=== PATIENT | female | born 1955 | race Caucasian/White ===

== ENCOUNTER → 2021-01-18 | Outpatient (CLI) | payer MEDICARE ==
--- NOTE | 2021-01-21 09:53 | PE ---
Nuclear medicine PET/CT HISTORY: Lung mass right, R 91.8, initial Patient received 11.2 mCi F-18 FDG intravenously, delayed scanning was performed from the skull base to the mid thighs. Localization and attenuation correction CT scan was performed. No comparisons Chest and neck: There is a mass present in the right hilar location with some probable postobstructiv e atelectatic changes of the right middle lobe, obstruction of the right middle lobe bronchus, there is associated hypermetabolic uptake, SUV 9.8. There is no pleural or pericardial effusion. No axillar y or mediastinal adenopathy is evident. Calcification is present within the coronary arteries, around the mitral annulus. There is no supraclavicular or cervical adenopathy, no additional abnormal uptak e. ABDOMEN: There is a right adrenal mass with associated hypermetabolic uptake SUV 7.1, the mass measur es approximately 3.6 x 1.8 cm. Left adrenal gland is unremarkable. There is no retroperitoneal adenop athy or ascites. Aorta shows normal caliber. Low dense foci within the liver likely represent cysts. Low dense areas present within the pelvis measuring approximately 11 x 14 cm which may represent a ri ght ovarian cystadenoma. There is no associated hydroureter metabolic uptake. No pelvic adenopathy. L eft kidney shows an associated cyst measuring approximately 6.7 cm. Osseous structures show no suspicious uptake, no evident lytic or blastic lesion. 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 Indeterminat e cystic focus within the pelvis.
== END | disposition home or self-care (01) ==
LOC: RADPETMAIN 08:27
PROVIDERS: ATTEND Internal Medicine Critical Care Medicine
DX: R91.8 Other nonspecific abnormal finding of lung field (principal)
CPT/HCPCS: 78815; A9552

== ENCOUNTER 2021-01-22 10:33 | Day surgery (SDC) | payer MEDICARE ==
[2021-01-20 11:42] VITALS: BMI 27.4
[~2021-01-22 10:33] MED LIST: ALBUTEROL NEB (CONC) 2.5 MG/0.5 ML INHALATION ONE; ATROPINE SULFATE 0.4 MG/ML 1 ML VIAL IM ONE; LACTATED RINGERS 1,000 ML IV SCH; LIDOCAINE 1% (10MG/ML) FOR IV START INTRADERMA PRN; LIDOCAINE 2% (PF) 20 MG/ML 5 ML VIAL INHALATION ONE; LIDOCAINE VISCOUS 300 MG/15 ML CUP MUCOUS MEM ONE; SODIUM CHLORIDE 0.9% 1,000 ML IV SCH
[2021-01-22 11:53] LABS: Glucose,Whole Blood 96 mg/dL (75-99)
--- NOTE | 2021-01-22 12:57 | CT ---
EXAMINATION TYPE: CT Chest chema Paula Protocol DATE OF EXAM: 01/22/2021 COMPARISON: None HISTORY: pre bronchial naviagation CT DLP: [address] of the chest was performed with lung and mediastinal window settings submitted. The la ck of contrast limits evaluation of the vascular, mediastinal and parenchymal structures including th e upper abdomen. LUNGS: Right hilar mass is noted measuring 5.7 x 3.9 x 3.8 cm. There is narrowing of the right middle lobe bronchus as well as the bronchus intermedius. No additional masses seen at this time. No eviden ce for pleural effusion or infiltrate. MEDIASTINUM/MAXIM: Thoracic aorta is of normal caliber with limited evaluation given lack of contrast . The heart is not enlarged. No evidence for mediastinal mass. No lymph nodes greater than 1cm. UPPER ABDOMEN: Hypoattenuating hepatic lesions may reflect cysts although lesions of other etiology n ot excluded. Right adrenal nodule is partially imaged. OTHER: No significant other abnormality. IMPRESSION: 1. Right hilar mass as discussed.
[2021-01-22] MEDS ORDERED: PROPOFOL 10 MG/ML 20 ML VIAL IV ONE (13:24)
[2021-01-22] MEDS ORDERED: GLYCOPYRROLATE 0.2 MG/ML 2 ML VIAL ONE (13:24)
[2021-01-22] MEDS ORDERED: SUCCINYLCHOLINE CHLORIDE 100 MG/5 ML SYR IV ONE (13:24)
[2021-01-22] MEDS ORDERED: ROCURONIUM 10 MG/ML (5 ML VIAL) IV ONE (13:24)
[2021-01-22] MEDS ORDERED: NEOSTIGMINE 1 MG/ML 10 ML VIAL ONE (13:24)
[2021-01-22] MEDS ORDERED: SODIUM CHLORIDE 0.9% 500 ML 500 ML IV ONE (14:19)
[2021-01-22 14:39] VITALS: TEMP 96.8
--- NOTE | 2021-01-22 14:47 | XR ---
EXAMINATION TYPE: XR chest 1V portable DATE OF EXAM: 01/22/2021 COMPARISON: CT same date HISTORY: Post right lung biopsy TECHNIQUE: Single frontal view of the chest is obtained. FINDINGS: There is no definite pneumothorax. Right hilar mass is redemonstrated. Linear densities of the left lung base are likely atelectasis. IMPRESSION: Right hilar mass.
[2021-01-22] MEDS ORDERED: ACETAMINOPHEN TAB 325 MG TAB PO STA (15:33)
[2021-01-22] MEDS ORDERED: IPRATROPIUM-ALBUTEROL 3 ML NEB INHALATION STA (15:33)
[2021-01-22] MEDS ORDERED: methylPREDNISolone ACETATE 80 MG/ML 1 ML VIAL IM STA (15:33)
[2021-01-22] MEDS ORDERED: ACETAMINOPHEN TAB 325 MG TAB ONE (15:35)
[2021-01-22] MEDS ORDERED: ACETAMINOPHEN TAB 325 MG TAB PO ONE (15:37)
[2021-01-22] MEDS ORDERED: methylPREDNISolone ACETATE 80 MG/ML 1 ML VIAL IM ONE (15:38)
[2021-01-22 15:43] VITALS: BP 115/71
[2021-01-22 16:03] VITALS: RESP 20
[2021-01-22 16:47] VITALS: PULSE 75
[2021-01-22 18:38] LABS: Appearance,BF Cloudy; Color,BF Red; Nucleated Cells, Body Fluid 50 /uL
[2021-01-22 18:39] LABS: RBC, Body Fluid 27200 /uL
[2021-01-22 18:51] LABS: Mononuclear WBC,Body Fluid 4 %; Polynuclear WBC,Body Fluid 96 %; Total Cells Counted,Body Fluid 100
--- NOTE | 2021-01-22 20:39 | PCN ---
PROCEDURE NOTE PROCEDURE: Electromagnetic navigational bronchoscopy. PREOP DIAGNOSIS: Right lung mass. POSTOP DIAGNOSIS: Right lung mass. OPERATORS: Dr. Hutson and Dr. eLvi. [employer] CONSULTANT provided general anesthesia. PROCEDURE DETAILS: The procedure was done and endoscopy #1. There was informed consent and universal timeout. After the patient was on the effects of general anesthesia on the ventilator, the bronchoscope was inserted through the bronchoscope adapter connected to the endotracheal tube. Next, we evaluated the left lung. The left lung was normal and the left upper lobe proper, lingula and left lower lobe. On the right side, the right upper lobe itself appeared completely normal as was the right lower lobe. The abnormalities appeared to be primarily located in the right middle lobe. It was difficult to get the scope into the right middle lobe beyond a couple mm. Next, using the [employer] electromagnetic navigational device, we were able to do multiple endobronchial and transbronchial biopsies in the area of the right middle lobe. Next we did transbronchial needle aspirations in the right middle lobe followed by brushes in the right middle lobe and finally washes in the right middle lobe. The patient tolerated the procedure well. The patient will need a postoperative chest x-ray. The patient will be recovered. No additional recommendations are made. There was no immediate complications. All the specimens were sent to the laboratory for analysis. MMODL / IJN: [id number] /
== END 2021-01-22 17:09 | disposition home or self-care (01) ==
LOC: ORWHC2ENDO 10:33
PROVIDERS: ATTEND Internal Medicine Critical Care Medicine
DX: R91.8 Other nonspecific abnormal finding of lung field (principal); I25.10 Atherosclerotic heart disease of native coronary artery without angina pectoris; I10 Essential (primary) hypertension; E78.5 Hyperlipidemia, unspecified; J44.9 Chronic obstructive pulmonary disease, unspecified; Z79.82 Long term (current) use of aspirin; Z95.1 Presence of aortocoronary bypass graft
CPT/HCPCS: 31627; 31629; 31625; 31623; 31624; 94640; 89050; 71045; 71250; J1040; J2710; J0330; J2704; 88305; 88341; 88342

== ENCOUNTER → 2021-01-31 | Outpatient (CLI) | payer MEDICARE ==
--- NOTE | 2021-01-31 13:39 | MR ---
EXAMINATION TYPE: MR brain wo/w con DATE OF EXAM: 01/31/2021 1:25 PM COMPARISON: NONE HISTORY: Lung Cancer CONTRAST: Patient received 7 mL intravenous Gadavist gadolinium contrast. Multiplanar and multispin-echo imaging of the brain was performed . Pre and post contrast enhanced i mages are obtained. The ventricles, basal cisterns and sulci overlying the cerebral convexities are mildly enlarged. There is evidence of mild periventricular white matter ischemic demyelination. Remote deep white matter insults are also noted. No acute edema is seen on diffusion weighted imaging. There is no evidence for midline shift or mass effect. Acute intracranial hemorrhage or extra-axial collection is not evident. No enhancing lesions are seen. The paranasal sinuses and mastoid air cells are well-aerated. IMPRESSION: Age-related atrophic and chronic small vessel ischemic change. No acute intracranial process at this time. No enhancing lesions are seen.
== END | disposition home or self-care (01) ==
LOC: RADMRIMAIN 11:37
PROVIDERS: ATTEND Internal Medicine Hematology & Oncology
DX: C34.90 Malignant neoplasm of unspecified part of unspecified bronchus or lung (principal); I99.8 Other disorder of circulatory system; I67.82 Cerebral ischemia
CPT/HCPCS: 70553; A9585

== ENCOUNTER → 2021-04-22 | Outpatient (CLI) | payer MEDICARE ==
--- NOTE | 2021-04-22 12:51 | XR ---
EXAMINATION TYPE: XR abdomen complete w decub DATE OF EXAM: 04/22/2021 COMPARISON: NONE HISTORY: 65-year-old female C34.2 R94.5 I25.10 E78.5 Abdominal Pain TECHNIQUE: Supine, upright, and left side down lateral decubitus views of the abdomen are obtained. FINDINGS: No evidence for free intraperitoneal air on the decubitus or upright images. Cholecystectomy clips. Some clustered air-fluid levels within small bowel loops and ascending colon in the right side of the abdomen. Small bowel loops measure up to 2.3 cm which are normal. Mild stool within the colon. Air e xtends distally to the rectum. No suspicious calcification is clearly seen. IMPRESSION: A number of air-fluid levels in the right side of the abdomen involve both nondilated small bowel and colon. Consider a regional ileus or enteritis. Overall nonobstructive bowel gas pattern. No free air .
== END | disposition home or self-care (01) ==
LOC: RADXRMAIN 12:03
PROVIDERS: ATTEND Internal Medicine Hematology & Oncology
DX: C34.2 Malignant neoplasm of middle lobe, bronchus or lung (principal); K52.9 Noninfective gastroenteritis and colitis, unspecified
CPT/HCPCS: 74021

== ENCOUNTER → 2021-05-02 | Outpatient (CLI) | payer MEDICARE ==
--- NOTE | 2021-05-06 14:26 | PE ---
Nuclear medicine PET/CT HISTORY: Lung cancer, subsequent Patient received 9.3 mCi F-18 FDG intravenously and delayed scanning was performed from skull base to the mid thighs. A localization and attenuation correction CT scan was performed Correlation to prior nuclear medicine PET/CT 01/18/2021 Chest and neck: There is no cervical or supraclavicular adenopathy. There is some uptake noted along the right lobe of the thyroid which may be artifactual SUV 3.2. At the level of the right hilum ther e is improvement in the hypermetabolic uptake seen on prior exam, SUV 2.8 previously SUV 9.8. There i s no pleural or pericardial effusion. Atelectatic change is again noted in the right lung. ABDOMEN: Uptake seen associated with the right adrenal gland has improved. SUV is 3.8, previous SUV 7 .1. Patient is post cholecystectomy. No evident liver mass or retroperitoneal adenopathy. Large cysti c focus is present within the pelvis similar to prior exam. No associated uptake. Osseous structures show no suspicious uptake IMPRESSION: There is improvement in the previously identified hypermetabolic uptake as described in t he right hilum, right adrenal gland
== END | disposition home or self-care (01) ==
LOC: RADPETMAIN 10:24
PROVIDERS: ATTEND Internal Medicine Hematology & Oncology
DX: C34.2 Malignant neoplasm of middle lobe, bronchus or lung (principal)
CPT/HCPCS: 78815; A9552

== ENCOUNTER 2021-06-05 14:26 | Inpatient (IN) | payer MEDICARE ==
[2021-06-05] MEDS ORDERED: ONDANSETRON 4 MG/2 ML VIAL IVP STA (15:05)
[2021-06-05] MEDS ORDERED: SODIUM CHLORIDE 0.9% 1,000 ML IV STA (15:05)
[2021-06-05] MEDS ORDERED: FAMOTIDINE 20 MG/2 ML VIAL IV STA (15:07)
--- NOTE | 2021-06-05 15:11 | ED ---
General Adult HPI - General Chief complaint: Weakness Stated complaint: Weakness Time Seen by Provider: 06/05/21 14:42 Source: patient, RN notes reviewed Mode of arrival: EMS Limitations: no limitations - History of Present Illness Initial comments: Patient is a pleasant 66-year-old female presenting to the emergency Department with complaints of general weakness. Onset of symptoms was several days ago. Patient has been having diarrhea the past 5 or 6 days, proximal he once per day. Patient states it looked dark but she thinks it was from taking Pepto-Bismol. A ellis has some nausea and did vomit once. No abdominal pain. Patient feels somewhat weak all over. Patient does have history of lung cancer and has had 4 rounds of chemotherapy. Patient is currently on immunotherapy with planned radiation to start soon. EMS reported low blood pressure that improved with 7 50 mL of fluid. Blood pressure was 70/40 by EMS. - Related Data Home Medications Medication Instructions Recorded Confirmed ALPRAZolam [Xanax] 0.5 mg PO DIRECTED PRN 01/20/21 01/22/21 Aspirin [Adult Low Dose Aspirin EC] 81 mg PO DAILY 01/20/21 01/22/21 Atorvastatin [Lipitor] 40 mg PO HS 01/20/21 01/22/21 Fluticasone/Vilanterol [Breo 1 inhalation INHALATION 01/20/21 01/22/21 Ellipta 200-25 Mcg INH] DIRECTED PRN Levothyroxine Sodium [Synthroid] 25 mcg PO DAILY 01/20/21 01/22/21 Loratadine [Claritin] 10 mg PO HS 01/20/21 01/22/21 Metoprolol Tartrate [Lopressor] 50 mg PO HS 01/20/21 01/22/21 buPROPion HCL [Wellbutrin XL] 150 mg PO HS 01/20/21 01/22/21 lisinopriL [Zestril] 5 mg PO HS 01/20/21 01/22/21 predniSONE [Deltasone] 20 mg PO BID 01/20/21 01/22/21 Allergies Allergy/AdvReac Type Severity Reaction Status Date / Time No Known Allergies Allergy Verified 06/05/21 14:53 Review of Systems ROS Statement: Those systems with pertinent positive or pertinent negative responses have been documented in the HPI. ROS Other: All systems not noted in ROS Statement are negative. Constitutional: Denies: fever Eyes: Denies: eye pain ENT: Denies: ear pain Respiratory: Denies: cough, dyspnea Cardiovascular: Denies: chest pain Endocrine: Reports: fatigue Gastrointestinal: Reports: nausea, vomiting, diarrhea. Denies: abdominal pain Genitourinary: Denies: dysuria Musculoskeletal: Denies: back pain Skin: Denies: rash Neurological: Denies: confusion Past Medical History Past Medical History: Cancer Additional Past Medical History / Comment(s): Heart Disease History of Any Multi-Drug Resistant Organisms: None Reported Past Surgical History: Cholecystectomy Past Psychological History: No Psychological Hx Reported Smoking Status: Former smoker Past Alcohol Use History: None Reported Past Drug Use History: None Reported General Exam Limitations: no limitations General appearance: alert, in no apparent distress Head exam: Present: normocephalic Eye exam: Present: normal appearance Neck exam: Present: normal inspection Respiratory exam: Present: normal lung sounds bilaterally Cardiovascular Exam: Present: tachycardia GI/Abdominal exam: Present: soft. Absent: tenderness Neurological exam: Present: alert, CN II-XII intact. Absent: motor sensory deficit Expanded Neurological exam: Present: protecting the airway Speech: Present: fluid speech Motor strength exam: RUE: 5, LUE: 5, RLE: 5, LLE: 5 Eye Response: (4) open spontaneously Motor Response: (6) obeys commands Verbal Response: (5) oriented Psychiatric exam: Present: normal affect, normal mood Skin exam: Present: normal color Course Vital Signs 06/05/21 06/05/21 06/05/21 14:29 14:38 15:08 Temperature 98.6 F Pulse Rate 112 H Pulse Rate [ 112 H Timekeeping Supervisor ] Respiratory 18 Rate Blood Pressure 109/48 O2 Sat by Pulse 92 L 87 L Oximetry 06/05/21 06/05/21 15:23 16:24 Temperature Pulse Rate 108 H 105 H Pulse Rate [ Timekeeping Supervisor ] Respiratory 16 16 Rate Blood Pressure 128/77 137/64 O2 Sat by Pulse 96 100 Oximetry EKG Findings - EKG Comments: EKG Findings:: Sinus tachycardia 113. HI 1:30. QRS 72. QT 362. QTC 496. Normal axis. Normal QRS. No acute ST change. Medical Decision Making - Medical Decision Making Patient reevaluated and updated. Patient only feels somewhat better. Blood pressure has been stable. Patient updated on results and plan. Case was discussed with Dr. Dhaliwal, who will admit covering hospital call. Dr. Gallagher wi ll be placed on consult. - Lab Data Result diagrams: 06/05/21 15:50 06/05/21 15:50 Lab Results 06/05/21 06/05/21 06/05/21 Range/Units 15:50 15:50 15:50 WBC 5.2 (3.8-10.6) k/uL RBC 3.59 L (3.80-5.40) m/uL Hgb 12.1 (11.4-16.0) gm/dL Hct 35.4 (34.0-46.0) % MCV 98.5 (80.0-100.0) fL MCH 33.7 (25.0-35.0) pg MCHC 34.2 (31.0-37.0) g/dL RDW 14.1 (11.5-15.5) % Plt Count 168 (150-450) k/uL MPV 9.1 Neutrophils % 82 % Lymphocytes % 8 % Monocytes % 7 % Eosinophils % 0 % Basophils % 0 % Neutrophils # 4.2 (1.3-7.7) k/uL Lymphocytes # 0.4 L (1.0-4.8) k/uL Monocytes # 0.4 (0-1.0) k/uL Eosinophils # 0.0 (0-0.7) k/uL Basophils # 0.0 (0-0.2) k/uL PT 10.8 (9.0-12.0) sec INR 1.0 (<1.2) APTT 26.1 (22.0-30.0) sec Sodium 137 (137-145) mmol/L Potassium 4.4 (3.5-5.1) mmol/L Chloride 105 (98-107) mmol/L Carbon Dioxide 25 (22-30) mmol/L Anion Gap 7 mmol/L BUN 28 H (7-17) mg/dL Creatinine 1.23 H (0.52-1.04) mg/dL Est GFR (CKD-EPI)AfAm 52 (>60 ml/min/1.73 sqM) Est GFR (CKD-EPI)NonAf 45 (>60 ml/min/1.73 sqM) Glucose 102 H (74-99) mg/dL Plasma Lactic Acid Richy (0.7-2.0) mmol/L Calcium 8.6 (8.4-10.2) mg/dL Phosphorus 3.5 (2.5-4.5) mg/dL Magnesium 1.7 (1.6-2.3) mg/dL Total Bilirubin 0.4 (0.2-1.3) mg/dL AST 47 H (14-36) U/L ALT 25 (4-34) U/L Alkaline Phosphatase 74 (38-126) U/L Total Protein 6.5 (6.3-8.2) g/dL Albumin 3.6 (3.5-5.0) g/dL 06/05/21 Range/Units 15:50 WBC (3.8-10.6) k/uL RBC (3.80-5.40) m/uL Hgb (11.4-16.0) gm/dL Hct (34.0-46.0) % MCV (80.0-100.0) fL MCH (25.0-35.0) pg MCHC (31.0-37.0) g/dL RDW (11.5-15.5) % Plt Count (150-450) k/uL MPV Neutrophils % % Lymphocytes % % Monocytes % % Eosinophils % % Basophils % % Neutrophils # (1.3-7.7) k/uL Lymphocytes # (1.0-4.8) k/uL Monocytes # (0-1.0) k/uL Eosinophils # (0-0.7) k/uL Basophils # (0-0.2) k/uL PT (9.0-12.0) sec INR (<1.2) APTT (22.0-30.0) sec Sodium (137-145) mmol/L Potassium (3.5-5.1) mmol/L Chloride (98-107) mmol/L Carbon Dioxide (22-30) mmol/L Anion Gap mmol/L BUN (7-17) mg/dL Creatinine (0.52-1.04) mg/dL Est GFR (CKD-EPI)AfAm (>60 ml/min/1.73 sqM) Est GFR (CKD-EPI)NonAf (>60 ml/min/1.73 sqM) Glucose (74-99) mg/dL Plasma Lactic Acid Richy 1.3 (0.7-2.0) mmol/L Calcium (8.4-10.2) mg/dL Phosphorus (2.5-4.5) mg/dL Magnesium (1.6-2.3) mg/dL Total Bilirubin (0.2-1.3) mg/dL AST (14-36) U/L ALT (4-34) U/L Alkaline Phosphatase (38-126) U/L Total Protein (6.3-8.2) g/dL Albumin (3.5-5.0) g/dL - Radiology Data Radiology results: image reviewed (Persistent right hilar mass) Disposition Clinical Impression: Dehydration Disposition: ADMITTED IP TO THIS HOSP Is patient prescribed a controlled substance at d/c from ED?: No Referrals: Viky Lowery MD [Primary Care Provider] - 1-2 days Decision Time: 16:39
--- NOTE | 2021-06-05 15:46 | XR ---
EXAMINATION TYPE: XR chest 2V DATE OF EXAM: 06/05/2021 COMPARISON: Chest x-ray January 22, 2021 HISTORY: Increased weakness. PET/CT May 02, 2021 TECHNIQUE: Frontal and lateral views of the chest are obtained. FINDINGS: There is right hilar spiculated nodule or mass redemonstrated. Left lung remains clear. Th e cardiac silhouette size is stable and within normal limits. The osseous structures are intact. IMPRESSION: Known right hilar mass or neoplasm. No acute pulmonary process is evident.
[2021-06-05 16:09] LABS: Basophils % (A) 0 %; Eosinophils % (A) 0 %; HCT 35.4 % (34.0-46.0); HGB 12.1 gm/dL (11.4-16.0); Lymphocytes # (A) 0.4 k/uL (1.0-4.8); Lymphocytes % (A) 8 %; MCH 33.7 pg (25.0-35.0); MCHC 34.2 g/dL (31.0-37.0); MCV 98.5 fL (80.0-100.0); Mean Platelet Volume 9.1; Monocytes # (A) 0.4 k/uL (0-1.0); Monocytes % (A) 7 %; Neutrophils # (A) 4.2 k/uL (1.3-7.7); Neutrophils % (A) 82 %; Platelet Count 168 k/uL (150-450); RBC 3.59 m/uL (3.80-5.40); RDW 14.1 % (11.5-15.5); WBC 5.2 k/uL (3.8-10.6)
[2021-06-05] MEDS ORDERED: MORPHINE SULFATE 2 MG/ML SYRINGE IVP STA (16:14)
[2021-06-05] MEDS ORDERED: ACETAMINOPHEN TAB 325 MG TAB PO STA (16:19)
[2021-06-05 16:21] LABS: Albumin 3.6 g/dL (3.5-5.0); Calcium 8.6 mg/dL (8.4-10.2); Magnesium 1.7 mg/dL (1.6-2.3); Phosphorus 3.5 mg/dL (2.5-4.5); Potassium 4.4 mmol/L (3.5-5.1); Total Bilirubin 0.4 mg/dL (0.2-1.3); Total Protein 6.5 g/dL (6.3-8.2)
[2021-06-05 16:25] LABS: Partial Thromboplastin Time 26.1 sec (22.0-30.0); Prothrombin Time 10.8 sec (9.0-12.0)
[2021-06-05] MEDS ORDERED: NALOXONE 0.4 MG/ML 1 ML VIAL IV PRN (16:40)
[2021-06-05] MEDS: SODIUM CHLORIDE 0.9% 1,000 ML IV SCH (20:28)
--- NOTE | 2021-06-05 22:54 | P.HPIM ---
History of Present Illness H&P Date: 06/05/21 Chief Complaint: Generalized weakness. Patient is a 66-year-old female with a known history of lung cancer with metastases to adrenal gland currently completed 4 cycles of chemotherapy and is planning for radiation to be started on 06/06/2021, hypertension, hyperlipidemia, hypothyroidism, GERD and history of coronary artery disease status post stent placement 3, anxiety/depression and panic disorder and previous history of smoking present complaints of generalized weakness and fatigue. Patient was also having diarrhea at home for the past 5-6 days.. Patient has been having symptoms for the past several days. Also is complaining of nausea and did have one episode of vomiting. No complaints of abdominal pain. Patient has been afebrile. On admission blood pressure was 109/48 and pulse 112 and pulse ox 92% on room air. Laboratory data showed WBC 5.2 hemoglobin 12.1 and platelets 168 Lymphocytes 0.4 D-dimer 1.02 BUN 28 and creatinine 1.23 COVID-19 PCR detected. UA negative for infection MBH 783 CRP 5.0 and TSH 5.4 and free T4 level is 0.88 slight chest x-ray showed known right hilar mass or neoplasm. No acute pulmonary process. Review of Systems Constitutional: Patient denies any fever or chills . Patient had generalized weakness and fatigue. Fatigue.. Abdomen: Complains of nausea vomiting. no abdominal pain. does have diarrhea.. Cardiovascular: Patient denies any chest pain or short of breath no p alpitations. Respiratory: Cough without sputum production. Minimal shortness of breath Neurologic: Patient denied any numbness or tingling headache. Musculoskeletal: Patient denies any complaints of joint swelling or deformity. Skin: Negative Psychiatric: Negative Endocrine: No heat or cold intolerance. No recent weight gain. Genitourinary: No dysuria or hematuria. All other 14 point ROS negative except the above Past Medical History Past Medical History: Cancer, GERD/Reflux, Hyperlipidemia, Hypertension, Thyroid Disorder Additional Past Medical History / Comment(s): Heart Disease,. 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 tx 4 chemo and immunotherapy rounds. supposed to start radiation 06/06/2021. History of Any Multi-Drug Resistant Organisms: None Reported Past Surgical History: Cholecystectomy, Heart Catheterization With Stent Additional Past Surgical History / Comment(s): 3 cardiac stents. Past Anesthesia/Blood Transfusion Reactions: No Reported Reaction Date of Last Stent Placement:: 2004 Past Psychological History: Anxiety, Depression, Panic Disorder Smoking Status: Former smoker Past Alcohol Use History: None Reported Past Drug Use History: None Reported Additional Drug Use History / Comment(s): quit smoking in january 2021 - Past Family History Mother Family Medical History: No Reported History Father Additional Family Medical History / Comment(s): esophageal cancer Medications and Allergies Home Medications Medication Instructions Recorded Confirmed Type Aspirin [Adult Low Dose Aspirin EC] 81 mg PO DAILY 01/20/21 06/05/21 History Atorvastatin [Lipitor] 40 mg PO HS 01/20/21 06/05/21 History Levothyroxine Sodium [Synthroid] 25 mcg PO DAILY 01/20/21 06/05/21 History lisinopriL [Zestril] 5 mg PO HS 01/20/21 06/05/21 History Folic Acid 1 mg PO DAILY 06/05/21 06/05/21 History Lansoprazole 30 mg PO DAILY 06/05/21 06/05/21 History Magnesium Oxide [Magox 400] 400 mg PO DAILY 06/05/21 06/05/21 History Metoprolol Succinate [Toprol XL] 50 mg PO DAILY 06/05/21 06/05/21 History buPROPion XL [Wellbutrin XL] 300 mg PO DAILY 06/05/21 06/05/21 History diphenhydrAMINE [Benadryl] 25 mg PO HS PRN 06/05/21 06/05/21 History ondansetron HCL [Zofran] 8 mg PO TID PRN 06/05/21 06/05/21 History Allergies Allergy/AdvReac Type Severity Reaction Status Date / Time No Known Allergies Allergy Verified 06/05/21 17:07 Physical Exam Vitals: Vital Signs Temp Pulse Pulse Pulse Resp BP BP 06/05/21 19:31 98.0 F 94 14 114/72 06/05/21 16:24 105 H 16 137/64 06/05/21 15:23 108 H 16 128/77 06/05/21 15:08 06/05/21 14:38 112 H 06/05/21 14:29 98.6 F 112 H 18 109/48 Pulse Ox 06/05/21 19:31 97 06/05/21 16:24 100 06/05/21 15:23 96 06/05/21 15:08 87 L 12/02/21 14:38 06/05/21 14:29 92 L Intake and Output 06/05/21 06/05/21 06/05/21 06:59 14:59 22:59 Other: Weight 75.296 kg 75.296 kg PHYSICAL EXAMINATION: Patient is lying in the bed comfortably, no acute distress, awake alert and wai ented. Generalized weakness and fatigue.. HEENT: Normocephalic. Neck is supple. Pupils reactive. Nostrils clear. Oral cavity is moist. Neck reveals no JVD, carotid bruits, or thyromegaly. CHEST EXAMINATION: Trachea is central. Symmetrical expansion. Lung farrar clear to auscultation and percussion. CARDIAC: Normal S1, S2 with no gallops. No murmurs ABDOMEN: Soft. Bowel sounds normal. No organomegaly. No abdominal bruits. Extremities: reveal no edema. No clubbing or cyanosis Neurologically awake, alert, oriented x3 with well-coordinated movements. No focal deficits noted Skin: No rash or skin lesions. Psychiatric: Coperative. Nonsuicidal Musculoskeletal: No joint swelling or deformity. Normal range of motion. Results CBC & Chem 7: 06/06/21 06:18 06/06/21 06:18 Labs: Abnormal Lab Results - Last 24 Hours (Table) 06/05/21 06/05/21 06/05/21 Range/Units 15:50 15:50 15:53 RBC 3.59 L (3.80-5.40) m/uL Lymphocytes # 0.4 L (1.0-4.8) k/uL BUN 28 H (7-17) mg/dL Creatinine 1.23 H (0.52-1.04) mg/dL Glucose 102 H (74-99) mg/dL AST 47 H (14-36) U/L TSH 5.410 H (0.465-4.680) mIU/L Coronavirus (PCR) Detected A (Not Detectd) Thrombosis Risk Factor Assmnt - DVT/VTE Prophylaxis DVT/VTE Prophylaxis: Pharmacologic Prophylaxis ordered - Choose All That Apply Any of the Below Risk Factors Present?: Yes Each Factor Represents 1 point: Obesity (BMI >25) Other Risk Factors: Yes Each Risk Factor Represents 2 Points: Age 61-74 years, Malignancy Other congenital or acquired thrombophilia - If yes, enter type in comment: No Thrombosis Risk Factor Assessment Total Risk Factor Score: 5 Thrombosis Risk Factor Assessment Level: High Risk Assessment and Plan Assessment: Generalized weakness weakness and fatigue and diarrhea Acute COVID-19 infection Acute kidney injury likely prerenal Elevated intermittent markers Lung cancer currently completed 4 cycles of chemotherapy and is scheduled for radiation therapy on 06/06/2021 Previous history of smoking DVT prophylaxis with Lovenox subcu Plan: Patient will be continued on IV hydration and replace address. Monitor renal function. Chest x-ray showed no acute process but no right hilar mass was noted. Patient is currently not hypoxic. Continue with multivitamins and Lovenox subcu. Time with Patient: Greater than 30
[2021-06-06 01:32] LABS: T4, Free (Free Thyroxine) 0.88 ng/dL (0.78-2.19)
[2021-06-06 05:18] LABS: Appearance,Urine Clear (Clear); Bilirubin,Urine Negative (Negative); Blood,Urine Negative (Negative); Color,Urine Yellow; Glucose,Urine (UA) Negative (Negative); Ketones,Urine Negative (Negative); Leukocyte Esterase,Urine Negative (Negative); Nitrite,Urine Negative (Negative); PH, Urine 5.5 (5.0-8.0); Protein,Urine Trace (Negative); Specific Gravity,Urine 1.019 (1.001-1.035); Urobilinogen,Urine <2.0 mg/dL (<2.0)
[2021-06-06] MEDS: LEVOTHYROXINE 25 MCG TAB PO SCH (05:47)
[2021-06-06] MEDS: SODIUM CHLORIDE 0.9% 1,000 ML IV SCH ×2 (05:50→12:59)
[2021-06-06] MEDS: ASCORBIC ACID 500 MG TAB PO SCH (09:26)
[2021-06-06] MEDS: CHOLECALCIFEROL 25 MCG (1000 IU) TABLET PO SCH (09:26)
[2021-06-06] MEDS: METOPROLOL SUCCINATE (ER) 50 MG TAB.ER.24H PO SCH (09:26)
[2021-06-06] MEDS: ZINC SULFATE 220 MG CAP PO SCH (09:26)
[2021-06-06] MEDS: PANTOPRAZOLE 40 MG/10 ML VIAL IV SCH (09:26)
[2021-06-06] MEDS: buPROPion XL 300 MG TAB.ER.24H PO SCH (09:26)
[2021-06-06] MEDS: ENOXAPARIN 40 MG/0.4 ML SYRINGE SQ SCH (09:26)
[2021-06-06] MEDS: ASPIRIN 81 MG PO SCH (09:26)
[2021-06-06 09:29] LABS: Basophils # (A) 0.01 X 10*3/uL (0.00-0.10); Basophils % (A) 0.2 %; Eosinophils # (A) 0.01 X 10*3/uL (0.04-0.35); Eosinophils % (A) 0.2 %; HCT 33.3 % (37.2-46.3); HGB 10.5 g/dL (12.0-15.0); Lymphocytes # (A) 0.68 X 10*3/uL (0.90-5.00); Lymphocytes % (A) 15.7 %; MCH 33.1 pg (27.0-32.0); MCHC 31.5 g/dL (32.0-37.0); Mean Platelet Volume 11.3 fL (9.5-12.2); Monocytes # (A) 0.35 X 10*3/uL (0.20-1.00); Monocytes % (A) 8.1 %; Neutrophils # (A) 3.25 X 10*3/uL (1.80-7.70); Neutrophils % (A) 75.1 %; Platelet Count 176 X 10*3/uL (140-440); RBC 3.17 X 10*6/uL (4.10-5.20); RDW 14.3 % (11.5-14.5); WBC 4.33 X 10*3/uL (4.50-10.00)
[2021-06-06] MEDS: ACETAMINOPHEN TAB 325 MG TAB PO PRN ×2 (09:32→20:27)
[2021-06-06 09:55] VITALS: BMI 27.6
[2021-06-06 10:01] LABS: Anion Gap 9.4 mmol/L (10.00-18.00); Calcium 8.3 mg/dL (8.7-10.3); Carbon Dioxide 22.6 mmol/L (20.0-27.5); Non-African American GFR(CKD) 57.8 (60.0-200.0); Potassium 4.5 mmol/L (3.5-5.5)
[2021-06-06] MEDS: ONDANSETRON 4 MG/2 ML VIAL IVP PRN ×2 (13:58→20:22)
--- NOTE | 2021-06-06 17:04 | CT ---
EXAMINATION TYPE: CT abdomen pelvis w con DATE OF EXAM: 06/06/2021 COMPARISON: Outside CT dated 05/10/2021 HISTORY: assess colitis CT DLP: 1100 mGycm CONTRAST: CT scan of the abdomen and pelvis is performed without Oral Contrast and with IV Contrast, patient in jected with 80 mL of Isovue 300. FINDINGS: LUNG BASES-: No visible nodule. No infiltrate. LIVER/GB: The gallbladder surgically absent. Several cystic hepatic lesions are stable. No space occu pying hepatic lesion. Biliary tree is of normal caliber. PANCREAS: No inflammation. No distinct mass. SPLEEN: No splenic enlargement. No lesion seen. ADRENALS: No nodule. No thickening. KIDNEYS/BLADDER: No hydronephrosis. No nephrolithiasis. Renal cystic changes noted. Urinary bladder grossly unremarkable. BOWEL: Normal appendix. Normal bowel caliber. No inflammation. Scattered sigmoid diverticula. No di verticulitis. GENITAL ORGANS: No gross abnormality. LYMPH NODES: No greater than 1cm abdominal or pelvic lymph nodes are appreciated. AORTA: No significant abnormality. OSSEOUS STRUCTURES: No significant abnormality is seen. OTHER: There is a large cystic mass arising from the pelvis with internal septations which measures a pproximately 25 x 11.9 x 19 cm. IMPRESSION: 1. Stable large cystic mass arising from the pelvis with internal septations. Neoplasm is not exclude d. Correlate clinically. 2. Mild thickening right adrenal gland. 3. Stable cystic lesions throughout the liver. 4. No evidence for colitis.
--- NOTE | 2021-06-06 17:36 | P.CONS ---
History of Present Illness - Reason for Consult Consult date: 06/06/21 metastatic lung cancer currently on immunotherapy. Covid - History of Present Illness this is a 66-year-old white female, a patient of Dr. Gallagher'bunny in the office was been admitted to the hospital for progressive weakness and decreased appetite. The patient developed diarrhea about 5-6 days ago, associated with decreased appetite and then subsequently at least 1 episode of nausea and vomiting. She denied any overt fever or chills. On evaluation she was found to be Covid positive. Labs showed mild anemia with hemoglobin at that-11 range with normal WBC and platelets. Patient was admitted for further management. Oncology history is as follows: She initially presented to ER in January/2021 with worsening cough over few months duration,had a CXR and then CT scan of chest which revealed right hilar mass,measured 5.7 x 3.9 x 3.8 cm with narrowing of RML bronchus and bronchus intermidius. She was evaluated by DR Hutson,she had a PET scan on 01/18/2021 which revealed suspicious uptake in the right hilar mass,also a suspicious uptake in right adrenal mass,measured 3.8 x1.8 cm. On 01/22/2021,she underwent navigational bronchoscopy,FNA of RML was positive for adenocarcinoma,IHC consistent with lung primary. Brain MRI on 01/31/2021 was negative for metastatic disease. NGS on tissues did not reveal any actionable mutation,PDL-1 50-60%,liquid biopsy showed TET2 and BRAF K601 mutations. On 02/18/2021,she started carboplatin/alimta/keytruda,she had 4 cycles completed on 04/29/2021 Repeat PET scan on 05/02/2021 repeat PET scan revealed improvement in IVANNA in right hilar lesion and right adrenal gland. Last office visit note from 05/17/21 and states "She feels tired,her BP is on low side,no drinking enough fluid,no nausea/vomiting,no diarrhea,she had abdominal pain which resolved,her LFT went back to normal." patient was then placed on maintenance immunotherapy with Keytruda, receiving first cycle on 05/23/21 Review of Systems Constitutional: Reports fatigue, Reports poor appetite, Reports weakness, Reports weight loss Eyes: denies blurred vision, denies pain Ears: deny: decreased hearing, ear discharge, earache, tinnitus Ears, nose, mouth and throat: Denies headache, Denies sore throat Cardiovascular: Reports decreased exercise tolerance Respiratory: Reports cough with sputum, Reports dyspnea Gastrointestinal: Reports diarrhea, Reports nausea, Reports vomiting Genitourinary: Denies dysuria, Denies hematuria Menstruation: Reports postmenopausal Musculoskeletal: Reports muscle weakness Integumentary: Denies pruritus, Denies rash Neurological: Reports weakness Psychiatric: Reports change in appetite Endocrine: Reports fatigue, Reports weight change Hematologic/Lymphatic: Reports as per HPI Past Medical History Past Medical History: Cancer, GERD/Reflux, Hyperlipidemia, Hypertension, Thyroid Disorder Additional Past Medical History / Comment(s): Heart Disease,. 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 tx 4 chemo and immunotherapy rounds. supposed to start radiation 06/06/2021. History of Any Multi-Drug Resistant Organisms: None Reported Past Surgical History: Cholecystectomy, Heart Catheterization With Stent Additional Past Surgical History / Comment(s): 3 cardiac stents. Past Anesthesia/Blood Transfusion Reactions: No Reported Reaction Date of Last Stent Placement:: 2004 Past Psychological History: Anxiety, Depression, Panic Disorder Smoking Status: Former smoker Past Alcohol Use History: None Reported Past Drug Use History: None Reported Additional Drug Use History / Comment(s): quit smoking in january 2021 - Past Family History Mother Family Medical History: No Reported History Father Additional Family Medical History / Comment(s): esophageal cancer Medications and Allergies Home Medications Medication Instructions Recorded Confirmed Type Aspirin [Adult Low Dose Aspirin EC] 81 mg PO DAILY 01/20/21 06/05/21 History Atorvastatin [Lipitor] 40 mg PO HS 01/20/21 06/05/21 History Levothyroxine Sodium [Synthroid] 25 mcg PO DAILY 01/20/21 06/05/21 History lisinopriL [Zestril] 5 mg PO HS 01/20/21 06/05/21 History Folic Acid 1 mg PO DAILY 06/05/21 06/05/21 History Lansoprazole 30 mg PO DAILY 06/05/21 06/05/21 History Magnesium Oxide [Magox 400] 400 mg PO DAILY 06/05/21 06/05/21 History Metoprolol Succinate [Toprol XL] 50 mg PO DAILY 06/05/21 06/05/21 History buPROPion XL [Wellbutrin XL] 300 mg PO DAILY 06/05/21 06/05/21 History diphenhydrAMINE [Benadryl] 25 mg PO HS PRN 06/05/21 06/05/21 History ondansetron HCL [Zofran] 8 mg PO TID PRN 06/05/21 06/05/21 History Allergies Allergy/AdvReac Type Severity Reaction Status Date / Time No Known Allergies Allergy Verified 06/05/21 17:07 Physical Exam Vitals: Vital Signs Temp Pulse Resp BP Pulse Ox 06/06/21 15:00 97.9 F 75 16 157/87 95 06/06/21 07:00 98.5 F 89 18 137/79 99 06/06/21 02:05 98.4 F 61 16 114/57 94 L 06/05/21 19:31 98.0 F 94 14 114/72 97 Intake and Output 06/06/21 06/06/21 06/06/21 06:59 14:59 22:59 Output Total 390 Balance -390 Output: Urine 390 Other: # Voids 1 Weight 75.296 kg generalized weakness, lethargic, arousable - Constitutional General appearance: no acute distress - EENT Eyes: EOMI, PERRLA ENT: hearing grossly normal, normal oropharynx - Neck Thyroid: bilateral: normal size - Respiratory Respiratory: bilateral: diminished, wheezing (scattered) - Cardiovascular Rhythm: regular Heart sounds: normal: S1, S2 - Gastrointestinal General gastrointestinal: normal bowel sounds, soft - Integumentary Integumentary: normal - Neurologic Neurologic: CNII-XII intact - Musculoskeletal Musculoskeletal: generalized weakness, strength equal bilaterally - Psychiatric lethargic but arousable. Comprehension and affect somewhat slow but appropriate Psychiatric: A&O x's 3, appropriate affect Results CBC & Chem 7: 06/06/21 06:18 06/06/21 06:18 Labs: Abnormal Lab Results - Last 24 Hours (Table) 06/05/21 06/06/21 06/06/21 Range/Units 15:53 00:39 00:39 WBC (4.50-10.00) X 10*3/uL RBC (4.10-5.20) X 10*6/uL Hgb (12.0-15.0) g/dL Hct (37.2-46.3) % MCV (80.0-97.0) fL MCH (27.0-32.0) pg MCHC (32.0-37.0) g/dL Lymphocytes # (0.90-5.00) X 10*3/uL Eosinophils # (0.04-0.35) X 10*3/uL D-Dimer 1.02 H (<0.60) mg/L FEU Anion Gap (10.00-18.00) mmol/L Est GFR (CKD-EPI)NonAf (60.0-200.0) BUN/Creatinine Ratio (12.00-20.00) Ratio Calcium (8.7-10.3) mg/dL Lactate Dehydrogenase 783 H (313-618) U/L C-Reactive Protein 5.0 H (<1.0) mg/dL Urine Protein (Negative) Coronavirus (PCR) Detected A (Not Detectd) 06/06/21 06/06/21 06/06/21 Range/Units 03:15 06:18 06:18 WBC 4.33 L (4.50-10.00) X 10*3/uL RBC 3.17 L (4.10-5.20) X 10*6/uL Hgb 10.5 L (12.0-15.0) g/dL Hct 33.3 L (37.2-46.3) % MCV 105.0 H (80.0-97.0) fL MCH 33.1 H (27.0-32.0) pg MCHC 31.5 L (32.0-37.0) g/dL Lymphocytes # 0.68 L (0.90-5.00) X 10*3/uL Eosinophils # 0.01 L (0.04-0.35) X 10*3/uL D-Dimer (<0.60) mg/L FEU Anion Gap 9.40 L (10.00-18.00) mmol/L Est GFR (CKD-EPI)NonAf 57.8 L (60.0-200.0) BUN/Creatinine Ratio 21.00 H (12.00-20.00) Ratio Calcium 8.3 L (8.7-10.3) mg/dL Lactate Dehydrogenase (313-618) U/L C-Reactive Protein (<1.0) mg/dL Urine Protein Trace H (Negative) Coronavirus (PCR) (Not Detectd) Chest x-ray: report reviewed Assessment and Plan (1) Diarrhea with dehydration Narrative/Plan: the patient developed diarrhea about 5-6 days ago, due to Covid. She did not have any major complaints regarding abdominal pain and abdominal exam is fairly benign. She had had some weakness and decreased appetite left over after completion of her chemotherapy which she had not fully recovered from. The refore she had progressive weakness due to dehydration from her diarrhea leading to this admission. - IV hydration - Management of Covid per the admitting service - Anti-diarrheal's if needed Current Visit: Yes Status: Acute Code(s): R19.7 - DIARRHEA, UNSPECIFIED SNOMED Code(s): 29057217 (2) COVID Narrative/Plan: as above With acute infection, as well as no diagnosis of malignancy and recent chemotherapy, patient is at increased risk for venous thrombosis. As there is no overt evidence of the same, standard prophylactic anticoagulation is reas onable. Current Visit: Yes Status: Acute Code(s): U07.1 - COVID-19 SNOMED Code(s): 340088489 (3) Adenocarcinoma of lung, stage 4 Narrative/Plan: diagnostic and therapeutic circumstances as described. Patient has completed chemotherapy immunotherapy combination and is currently on immunotherapy alone. CT of the abdomen and pelvis has been ordered to check for immunotherapy related colitis. However based on clinical exam as well as lack of symptoms of abdominal pain, this appears to be less likely. - Counts show only mild anemia with WBC in platelets normal. Monitor counts as patient can develop significant cytopenias in the setting of acute viral infection. Supportive treatment in that situation, as needed - Resume immunotherapy after satisfactory recovery from her acute infection Current Visit: Yes Status: Acute Code(s): C34.90 - MALIGNANT NEOPLASM OF UN SP PART OF UNSP BRONCHUS OR LUNG SNOMED Code(s): 679853104
[2021-06-06] MEDS: ATORVASTATIN 40 MG TAB PO SCH (20:22)
[2021-06-07] MEDS: ACETAMINOPHEN TAB 325 MG TAB PO PRN ×2 (02:14→20:46)
[2021-06-07] MEDS: ONDANSETRON 4 MG/2 ML VIAL IVP PRN ×3 (04:21→20:46)
[2021-06-07] MEDS: LEVOTHYROXINE 25 MCG TAB PO SCH (05:16)
[2021-06-07] MEDS: ENOXAPARIN 40 MG/0.4 ML SYRINGE SQ SCH (08:41)
[2021-06-07] MEDS: PANTOPRAZOLE 40 MG/10 ML VIAL IV SCH (08:41)
[2021-06-07] MEDS: buPROPion XL 300 MG TAB.ER.24H PO SCH (08:42)
[2021-06-07] MEDS: ASCORBIC ACID 500 MG TAB PO SCH (08:42)
[2021-06-07] MEDS: ZINC SULFATE 220 MG CAP PO SCH (08:42)
[2021-06-07] MEDS: ASPIRIN 81 MG PO SCH (08:42)
[2021-06-07] MEDS: METOPROLOL SUCCINATE (ER) 50 MG TAB.ER.24H PO SCH (08:42)
[2021-06-07] MEDS: CHOLECALCIFEROL 25 MCG (1000 IU) TABLET PO SCH (08:42)
[2021-06-07 09:08] LABS: African American GFR (CKD) 87.8 (60.0-200.0); Albumin 3.3 g/dL (3.8-4.9); Albumin/Globulin Ratio 1.43 (1.60-3.17); Anion Gap 9.5 mmol/L (10.00-18.00); BUN/Creat Ratio 13.63 Ratio (12.00-20.00); Blood Urea Nitrogen 10.9 mg/dL (9.0-27.0); Calcium 8.4 mg/dL (8.7-10.3); Carbon Dioxide 23.5 mmol/L (20.0-27.5); Globulin 2.3 g/dL (1.6-3.3); Non-African American GFR(CKD) 75.8 (60.0-200.0); Potassium 3.7 mmol/L (3.5-5.5); Total Bilirubin 0.3 mg/dL (0.30-1.20); Total Protein 5.6 g/dL (6.2-8.2)
[2021-06-07 09:10] LABS: Basophils # (A) 0.01 X 10*3/uL (0.00-0.10); Basophils % (A) 0.2 %; Eosinophils # (A) 0.02 X 10*3/uL (0.04-0.35); Eosinophils % (A) 0.4 %; HCT 31.7 % (37.2-46.3); Lymphocytes # (A) 0.78 X 10*3/uL (0.90-5.00); Lymphocytes % (A) 17.1 %; MCH 32.7 pg (27.0-32.0); MCHC 31.5 g/dL (32.0-37.0); MCV 103.6 fL (80.0-97.0); Mean Platelet Volume 11.1 fL (9.5-12.2); Monocytes # (A) 0.38 X 10*3/uL (0.20-1.00); Monocytes % (A) 8.3 %; Neutrophils # (A) 3.37 X 10*3/uL (1.80-7.70); Neutrophils % (A) 73.8 %; Platelet Count 200 X 10*3/uL (140-440); RBC 3.06 X 10*6/uL (4.10-5.20); RDW 14.1 % (11.5-14.5); WBC 4.57 X 10*3/uL (4.50-10.00)
[2021-06-07] MEDS: SODIUM CHLORIDE 0.9% 1,000 ML IV SCH ×2 (16:45→20:46)
[2021-06-07] MEDS: ATORVASTATIN 40 MG TAB PO SCH (20:46)
[2021-06-07] MEDS ORDERED: MORPHINE SULFATE 4 MG/ML SYRINGE IVP STA (21:29)
[2021-06-08] MEDS: LEVOTHYROXINE 25 MCG TAB PO SCH (05:32)
[2021-06-08] MEDS: ENOXAPARIN 40 MG/0.4 ML SYRINGE SQ SCH (10:04)
[2021-06-08] MEDS: ZINC SULFATE 220 MG CAP PO SCH (10:04)
[2021-06-08] MEDS: PANTOPRAZOLE 40 MG/10 ML VIAL IV SCH (10:04)
[2021-06-08] MEDS: METOPROLOL SUCCINATE (ER) 50 MG TAB.ER.24H PO SCH (10:04)
[2021-06-08] MEDS: ASPIRIN 81 MG PO SCH (10:04)
[2021-06-08] MEDS: ASCORBIC ACID 500 MG TAB PO SCH (10:04)
[2021-06-08] MEDS: CHOLECALCIFEROL 25 MCG (1000 IU) TABLET PO SCH (10:04)
[2021-06-08] MEDS: buPROPion XL 300 MG TAB.ER.24H PO SCH (10:05)
--- NOTE | 2021-06-08 11:02 | CT ---
EXAMINATION TYPE: CT angio chest DATE OF EXAM: 06/08/2021 COMPARISON: 01/22/2021 HISTORY: Shortness of breath rule out PE. Known history of lung carcinoma CONTRAST: CT chest with contrast and 3D reconstruction with MIP imaging is performed with IV Contrast, patient injected with 100 mL of Isovue 300. Contrast-enhanced CT of the chest was performed through the course of the pulmonary arteries with joey g and mediastinal window settings submitted. 3D reconstruction with MIP imaging was also performed. PULMONARY ARTERIES: The pulmonary arteries and their major tributaries are patent. I do not see ariane dence for sizable filling defect to suggest pulmonary embolic process. LUNGS: There is scattered groundglass infiltrates throughout both lung farrar compatible with pneumon ia. There is right hilar spiculated masslike density measuring 2.1 cm with postobstructive but mild v olume loss. This may reflect the patient's site of known malignancy. No pleural effusion. MEDIASTINUM: Thoracic aorta is of normal caliber. The heart is not enlarged. No evidence for medias tinal mass. No mediastinal lymph nodes greater than 1cm. HILAR STRUCTURES: No evidence for mass. No hilar lymph nodes greater than 1 cm. UPPER ABDOMEN: No significant abnormality is seen. IMPRESSION: 1. No evidence for Pulmonary embolism at this time. 2. Right hilar spiculated mass. See above. 3. Changes of Covid 19 pneumonia.
[2021-06-08] MEDS: SODIUM CHLORIDE 0.9% 1,000 ML IV SCH (16:01)
--- NOTE | 2021-06-08 17:48 | P.PN ---
Subjective Progress Note Date: 06/08/21 Principal diagnosis: COVID on treatment for Lung CA She is having increased shortness of breath today, requiring oxygen. She is more fatigued. Diarrhea resolved, now states she is constipated. IgG was 840 therefore no recommendation for IVIG. She has some hypothyroid, likely due to Keytruda immune therapy response and primary team has added Levothyroxine. Objective - Vital Signs Vital signs: Vital Signs Temp 97.9 F 06/08/21 07:00 Pulse 90 06/08/21 07:00 Resp 18 06/08/21 07:00 BP 150/83 06/08/21 07:00 Pulse Ox 97 06/08/21 07:00 Intake & Output 06/07/21 06/08/21 06/08/21 18:59 06:59 18:59 Intake Total 600 Balance 600 Intake: Intake, IV Titration 600 Amount Sodium Chloride 0.9% 1, 600 000 ml @ 75 mls/hr IV . [id number] TORI Rx#:[id number] Other: # Voids 2 - Exam Alert, NAD Head NC Mild increased effort Abd Soft and Tender Heart Tachy Ext: Mild Edema - Labs CBC & Chem 7: 06/07/21 06:25 06/07/21 06:25 Labs: Microbiology - Last 24 Hours (Table) 06/06/21 18:16 Stool Culture - Preliminary Stool Assessment and Plan (1) Adenocarcinoma of lung, stage 4 Current Visit: Yes Status: Acute Code(s): C34.90 - MALIGNANT NEOPLASM OF UNSP PART OF UNSP BRONCHUS OR LUNG SNOMED Code(s): 886973994 (2) COVID Current Visit: Yes Status: Acute Code(s): U07.1 - COVID-19 SNOMED Code(s): 030510065 (3) Dehydration Current Visit: Yes Status: Acute Code(s): E86.0 - DEHYDRATION SNOMED Code(s): 16826666 (4) Diarrhea with dehydration Current Visit: Yes Status: Acute Code(s): R19.7 - DIARRHEA, UNSPECIFIED SNOMED Code(s): 78806693 Plan: Review of CT abdomen and Pelvis show no evidence of colitis Increased oxygen need today, Within a hypercoag state check CTA Levothyroxine added per primary for hypothyroid likely as a aresult of immune related side effect COntinue on supportive care for COVID-Pneumonia.
[2021-06-08] MEDS: ONDANSETRON 4 MG/2 ML VIAL IVP PRN (17:54)
[2021-06-08] MEDS: ACETAMINOPHEN TAB 325 MG TAB PO PRN (19:50)
[2021-06-08] MEDS: ATORVASTATIN 40 MG TAB PO SCH (19:50)
--- NOTE | 2021-06-08 21:22 | P.PN ---
Subjective Progress Note Date: 06/07/21 Patient is a 66-year-old female with a known history of lung cancer with metastases to adrenal gland currently completed 4 cycles of chemotherapy and is planning for radiation to be started on 06/06/2021, hypertension, hyperlipidemia, hypothyroidism, GERD and history of coronary artery disease status post stent placement 3, anxiety/depression and panic disorder and previous history of smoking present complaints of generalized weakness and fatigue. Patient was also having diarrhea at home for the past 5-6 days.. Patient has been having symptoms for the past several days. Also is complaining of nausea and did have one episode of vomiting. No complaints of abdominal pain. Patient has been afebrile. On admission blood pressure was 109/48 and pulse 112 and pulse ox 92% on room air. Laboratory data showed WBC 5.2 hemoglobin 12.1 and platelets 168 Lymphocytes 0.4 D-dimer 1.02 BUN 28 and creatinine 1.23 COVID-19 PCR detected. UA negative for infection LDH 783 CRP 5.0 and TSH 5.4 and free T4 level is 0.88 slight chest x-ray showed known right hilar mass or neoplasm[place]. [id number] Patient is resting in the bed. Complains of generalized weakness. No complaints of chest pain or shortness breath. Patient has been afebrile. No nausea vomiting abdominal pain or diarrhea. Currently saturating well on room air. Patient is being continued Lovenox subcu and multivitamins due to COVID-19 infection. Patient is also on IV hydration with normal saline at 75 cc/h. Laboratory data showed WBC 4.3 hemoglobin 10.5 and platelets 176 BUN 21 creatinine 1.0. Renal function has nearly normalized. Calcium 8.3. Urinalysis is negative for infection. Oncology has seen the patient. 06/07/2021 Patient is currently resting in bed. Awake alert and oriented x3. Patient did require 2 L oxygen via nasal cannula on and off. Currently on room air. No complaints of chest pain or shortness of. Patient still feels very weak. Patient has been afebrile. No nausea vomiting or diarrhea. Patient does have very poor appetite. Laboratory showed WBC 4.57, hemoglobin 10.0 and platelets 200 Sodium 139 potassium 3.7 chloride 106 bicarb is 23.5 BUN 10.9 and creatinine 0.8 patient is being current on IV hydration. Free T4 within normal limits. Oncology is on board. Patient is being continued on Lovenox subcu and multivitamins. Current medications reviewed. Objective - Vital Signs Vital signs: Vital Signs Temp 98.3 F 06/08/21 15:00 Pulse 89 06/08/21 15:00 Resp 18 06/08/21 15:00 BP 132/71 06/08/21 15:00 Pulse Ox 99 06/08/21 15:00 Intake & Output 06/08/21 06/08/21 06/09/21 06:59 18:59 06:59 Intake Total 718 Balance 718 Intake: Intake, IV Titration 600 Amount Sodium Chloride 0.9% 1, 600 000 ml @ 75 mls/hr IV . [id number] TORI Rx#:[id number] Oral 118 Other: # Voids 2 7 - Exam PHYSICAL EXAMINATION: Patient is lying in the bed comfortably, no acute distress, awake alert and wai ented. Generalized weakness and fatigue.. HEENT: Normocephalic. Neck is supple. Pupils reactive. Nostrils clear. Oral cavity is moist. Neck reveals no JVD, carotid bruits, or thyromegaly. CHEST EXAMINATION: Trachea is central. Symmetrical expansion. Lung farrar clear to auscultation and percussion. CARDIAC: Normal S1, S2 with no gallops. No murmurs ABDOMEN: Soft. Bowel sounds normal. No organomegaly. No abdominal bruits. Extremities: reveal no edema. No clubbing or cyanosis Neurologically awake, alert, oriented x3 with well-coordinated movements. No focal deficits noted Skin: No rash or skin lesions. Psychiatric: Coperative. Nonsuicidal Musculoskeletal: No joint swelling or deformity. Normal range of motion. - Labs CBC & Chem 7: 06/07/21 06:25 06/07/21 06:25 Assessment and Plan Assessment: Generalized weakness weakness and fatigue and diarrhea Acute COVID-19 infection Acute kidney injury likely prerenal Elevated intermittent markers Lung cancer currently completed 4 cycles of chemotherapy and is scheduled for radiation therapy on 06/06/2021 Previous history of smoking DVT prophylaxis with Lovenox subcu Plan: Patient will be continued on IV hydration and replace electrolytesl. Renal function normalized.. Chest x-ray showed no acute process but no right hilar mass was noted. Patient is currently not hypoxic. Continue with multivitamins and Lovenox subcu. Oncology is following.
[2021-06-09] MEDS: HYDROcodone/APAP 5-325MG 1 EACH TAB PO PRN ×2 (00:13→17:25)
--- NOTE | 2021-06-09 00:36 | P.PN ---
Subjective Progress Note Date: 06/06/21 Patient is a 66-year-old female with a known history of lung cancer with metastases to adrenal gland currently completed 4 cycles of chemotherapy and is planning for radiation to be started on 06/06/2021, hypertension, hyperlipidemia, hypothyroidism, GERD and history of coronary artery disease status post stent placement 3, anxiety/depression and panic disorder and previous history of smoking present complaints of generalized weakness and fatigue. Patient was also having diarrhea at home for the past 5-6 days.. Patient has been having symptoms for the past several days. Also is complaining of nausea and did have one episode of vomiting. No complaints of abdominal pain. Patient has been afebrile. On admission blood pressure was 109/48 and pulse 112 and pulse ox 92% on room air. Laboratory data showed WBC 5.2 hemoglobin 12.1 and platelets 168 Lymphocytes 0.4 D-dimer 1.02 BUN 28 and creatinine 1.23 COVID-19 PCR detected. UA negative for infection LDH 783 CRP 5.0 and TSH 5.4 and free T4 level is 0.88 slight chest x-ray showed known right hilar mass or neoplasm. [place]. [id number] Patient is resting in the bed. Complains of generalized weakness. No complaints of chest pain or shortness breath. Patient has been afebrile. No nausea vomiting abdominal pain or diarrhea. Currently saturating well on room air. Patient is being continued Lovenox subcu and multivitamins due to COVID-19 infection. Patient is also on IV hydration with normal saline at 75 cc/h. Laboratory data showed WBC 4.3 hemoglobin 10.5 and platelets 176 BUN 21 creatinine 1.0. Renal function has nearly normalized. Calcium 8.3. Urinalysis is negative for infection. Oncology has seen the patient. Current medications reviewed. Objective - Vital Signs Vital signs: Vital Signs Temp 98.0 F 06/06/21 19:29 Pulse 75 06/06/21 19:29 Resp 17 06/06/21 19:29 BP 131/75 06/06/21 19:29 Pulse Ox 92 L 06/06/21 19:29 Intake & Output 06/06/21 06/06/21 06/07/21 06:59 18:59 06:59 Output Total 540 Balance -540 Weight 75.296 kg 75.296 kg Output: Urine 540 Other: # Voids 1 1 - Exam PHYSICAL EXAMINATION: Patient is lying in the bed comfortably, no acute distress, awake alert and oriented. Generalized weakness and fatigue.. HEENT: Normocephalic. Neck is supple. Pupils reactive. Nostrils clear. Oral cavity is moist. Neck reveals no JVD, carotid bruits, or thyromegaly. CHEST EXAMINATION: Trachea is central. Symmetrical expansion. Lung farrar clear to auscultation and percussion. CARDIAC: Normal S1, S2 with no gallops. No murmurs ABDOMEN: Soft. Bowel sounds normal. No organomegaly. No abdominal bruits. Extremities: reveal no edema. No clubbing or cyanosis Neurologically awake, alert, oriented x3 with well-coordinated movements. No focal deficits noted Skin: No rash or skin lesions. Psychiatric: Coperative. Nonsuicidal Musculoskeletal: No joint swelling or deformity. Normal range of motion. - Labs CBC & Chem 7: 06/07/21 06:25 06/07/21 06:25 Labs: Abnormal Lab Results - Last 24 Hours (Table) 06/06/21 06/06/21 06/06/21 Range/Units 00:39 00:39 03:15 WBC (4.50-10.00) X 10*3/uL RBC (4.10-5.20) X 10*6/uL Hgb (12.0-15.0) g/dL Hct (37.2-46.3) % MCV (80.0-97.0) fL MCH (27.0-32.0) pg MCHC (32.0-37.0) g/dL Lymphocytes # (0.90-5.00) X 10*3/uL Eosinophils # (0.04-0.35) X 10*3/uL D-Dimer 1.02 H (<0.60) mg/L FEU Anion Gap (10.00-18.00) mmol/L Est GFR (CKD-EPI)NonAf (60.0-200.0) BUN/Creatinine Ratio (12.00-20.00) Ratio Calcium (8.7-10.3) mg/dL Lactate Dehydrogenase 783 H (313-618) U/L C-Reactive Protein 5.0 H (<1.0) mg/dL Urine Protein Trace H (Negative) 06/06/21 06/06/21 Range/Units 06:18 06:18 WBC 4.33 L (4.50-10.00) X 10*3/uL RBC 3.17 L (4.10-5.20) X 10*6/uL Hgb 10.5 L (12.0-15.0) g/dL Hct 33.3 L (37.2-46.3) % MCV 105.0 H (80.0-97.0) fL MCH 33.1 H (27.0-32.0) pg MCHC 31.5 L (32.0-37.0) g/dL Lymphocytes # 0.68 L (0.90-5.00) X 10*3/uL Eosinophils # 0.01 L (0.04-0.35) X 10*3/uL D-Dimer (<0.60) mg/L FEU Anion Gap 9.40 L (10.00-18.00) mmol/L Est GFR (CKD-EPI)NonAf 57.8 L (60.0-200.0) BUN/Creatinine Ratio 21.00 H (12.00-20.00) Ratio Calcium 8.3 L (8.7-10.3) mg/dL Lactate Dehydrogenase (313-618) U/L C-Reactive Protein (<1.0) mg/dL Urine Protein (Negative) Assessment and Plan Assessment: Generalized weakness weakness and fatigue and diarrhea Acute COVID-19 infection Acute kidney injury likely prerenal Elevated intermittent markers Lung cancer currently completed 4 cycles of chemotherapy and is scheduled for radiation therapy on 06/06/2021 Previous history of smoking DVT prophylaxis with Lovenox subcu Plan: Patient will be continued on IV hydration and replace electrolytesl. Renal function normalized.. Chest x-ray showed no acute process but no right hilar mass was noted. Patient is currently not hypoxic. Continue with multivitamins and Lovenox subcu. Oncology is following.
--- NOTE | 2021-06-09 00:40 | P.PN ---
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 Patient was also having diarrhea at home for the past 5-6 days.. Patient has been having symptoms for the past several days. Also is complaining of nausea and did have one episode of vomiting. No complaints of abdominal pain. Patient has been afebrile. On admission blood pressure was 109/48 and pulse 112 and pulse ox 92% on room air. Laboratory data showed WBC 5.2 hemoglobin 12.1 and platelets 168 Lymphocytes 0.4 D-dimer 1.02 BUN 28 and creatinine 1.23 COVID-19 PCR detected. UA negative for infection LDH 783 CRP 5.0 and TSH 5.4 and free T4 level is 0.88 slight chest x-ray showed known right hilar mass or neoplasm[place]. [id number] Patient is resting in the bed. Complains of generalized weakness. No complaints of chest pain or shortness breath. Patient has been afebrile. No nausea vomiting abdominal pain or diarrhea. Currently saturating well on room air. Patient is being continued Lovenox subcu and multivitamins due to COVID-19 infection. Patient is also on IV hydration with normal saline at 75 cc/h. Laboratory data showed WBC 4.3 hemoglobin 10.5 and platelets 176 BUN 21 creatinine 1.0. Renal function has nearly normalized. Calcium 8.3. Urinalysis is negative for infection. Oncology has seen the patient. 06/07/2021 Patient is currently resting in bed. Awake alert and oriented x3. Patient did require 2 L oxygen via nasal cannula on and off. Currently on room air. No complaints of chest pain or shortness of. Patient still feels very weak. Patient has been afebrile. No nausea vomiting or diarrhea. Patient does have very poor appetite. Laboratory showed WBC 4.57, hemoglobin 10.0 and platelets 200 Sodium 139 potassium 3.7 chloride 106 bicarb is 23.5 BUN 10.9 and creatinine 0.8 patient is being current on IV hydration. Free T4 within normal limits. Oncology is on board. Patient is being continued on Lovenox subcu and multivitamins. 06/08/2021 Patient is currently resting in bed. Awake alert and oriented. No complaints of chest pain or shortness breath. Patient did require oxygen this morning and saturating at 97%. Titrate down to room air. Patient has been afebrile. Diarrhea has resolved. Patient still having generalized weakness. CTA showed no evidence of PE. Right hilar spiculated mass. Changes of COVID-19 pneumonia. Patient is being current Lovenox subcu and multivitamins and add dexamethasone 6 mg daily if continues to be hypoxic. Encourage incentive spirometry and oral intake. Current medications reviewed. Objective - Vital Signs Vital signs: Vital Signs Temp 98.3 F 06/08/21 15:00 Pulse 89 06/08/21 15:00 Resp 18 06/08/21 15:00 BP 132/71 06/08/21 15:00 Pulse Ox 99 06/08/21 15:00 Intake & Output 06/08/21 06/08/21 06/09/21 06:59 18:59 06:59 Intake Total 718 Balance 718 Intake: Intake, IV Titration 600 Amount Sodium Chloride 0.9% 1, 600 000 ml @ 75 mls/hr IV . [id number] TORI Rx#:[id number] Oral 118 Other: # Voids 2 7 - Exam PHYSICAL EXAMINATION: Patient is lying in the bed comfortably, no acute distress, awake alert and oriented. Generalized weakness and fatigue.. HEENT: Normocephalic. Neck is supple. Pupils reactive. Nostrils clear. Oral cavity is moist. Neck reveals no JVD, carotid bruits, or thyromegaly. CHEST EXAMINATION: Trachea is central. Symmetrical expansion. Lung farrar clear to auscultation and percussion. CARDIAC: Normal S1, S2 with no gallops. No murmurs ABDOMEN: Soft. Bowel sounds normal. No organomegaly. No abdominal bruits. Extremities: reveal no edema. No clubbing or cyanosis Neurologically awake, alert, oriented x3 with well-coordinated movements. No focal deficits noted Skin: No rash or skin lesions. Psychiatric: Coperative. Nonsuicidal Musculoskeletal: No joint swelling or deformity. Normal range of motion. - Labs CBC & Chem 7: 06/07/21 06:25 06/07/21 06:25 Assessment and Plan Assessment: Generalized weakness weakness and fatigue and diarrhea Acute COVID-19 infection Acute kidney injury likely prerenal Elevated intermittent markers Lung cancer currently completed 4 cycles of chemotherapy and is scheduled for radiation therapy on 06/06/2021 Previous history of smoking DVT prophylaxis with Lovenox subcu Plan: Patient will be continued on IV hydration and replace electrolytesl. Renal function normalized.. Chest x-ray showed no acute process but no right hilar mass was noted. Patient is currently not hypoxic. Continue with multivitamins and Lovenox subcu. Oncology is following.
[2021-06-09] MEDS: SODIUM CHLORIDE 0.9% 1,000 ML IV SCH ×2 (00:46→13:28)
[2021-06-09] MEDS: ONDANSETRON 4 MG/2 ML VIAL IVP PRN ×3 (00:52→20:26)
[2021-06-09] MEDS: CHOLECALCIFEROL 25 MCG (1000 IU) TABLET PO SCH (07:33)
[2021-06-09] MEDS: ZINC SULFATE 220 MG CAP PO SCH (07:33)
[2021-06-09] MEDS: METOPROLOL SUCCINATE (ER) 50 MG TAB.ER.24H PO SCH (07:33)
[2021-06-09] MEDS: LEVOTHYROXINE 25 MCG TAB PO SCH (07:33)
[2021-06-09] MEDS: buPROPion XL 300 MG TAB.ER.24H PO SCH (07:33)
[2021-06-09] MEDS: ENOXAPARIN 40 MG/0.4 ML SYRINGE SQ SCH (07:34)
[2021-06-09] MEDS: ASCORBIC ACID 500 MG TAB PO SCH (07:34)
[2021-06-09] MEDS: ASPIRIN 81 MG PO SCH (07:34)
[2021-06-09] MEDS: PANTOPRAZOLE 40 MG/10 ML VIAL IV SCH (07:34)
[2021-06-09 10:35] LABS: Basophils # (A) 0.01 X 10*3/uL (0.00-0.10); Basophils % (A) 0.2 %; Eosinophils # (A) 0.04 X 10*3/uL (0.04-0.35); Eosinophils % (A) 0.6 %; HCT 31.7 % (37.2-46.3); HGB 10.3 g/dL (12.0-15.0); Lymphocytes # (A) 0.65 X 10*3/uL (0.90-5.00); Lymphocytes % (A) 9.9 %; MCH 33.1 pg (27.0-32.0); MCHC 32.5 g/dL (32.0-37.0); MCV 101.9 fL (80.0-97.0); Monocytes # (A) 0.55 X 10*3/uL (0.20-1.00); Monocytes % (A) 8.4 %; Neutrophils # (A) 5.27 X 10*3/uL (1.80-7.70); Neutrophils % (A) 80.4 %; Platelet Count 248 X 10*3/uL (140-440); RBC 3.11 X 10*6/uL (4.10-5.20); RDW 13.9 % (11.5-14.5); WBC 6.55 X 10*3/uL (4.50-10.00)
[2021-06-09 10:57] LABS: C Reactive Protein 7.8 mg/dL (0.00-0.80); Magnesium 1.2 mg/dL (1.5-2.4)
[2021-06-09 11:02] LABS: African American GFR (CKD) 87.8 (60.0-200.0); Albumin 3.5 g/dL (3.8-4.9); Albumin/Globulin Ratio 1.52 (1.60-3.17); Anion Gap 12.4 mmol/L (10.00-18.00); BUN/Creat Ratio 8.75 Ratio (12.00-20.00); Calcium 8.6 mg/dL (8.7-10.3); Carbon Dioxide 23.6 mmol/L (20.0-27.5); Globulin 2.3 g/dL (1.6-3.3); Non-African American GFR(CKD) 75.8 (60.0-200.0); Potassium 3.3 mmol/L (3.5-5.5); Total Bilirubin 0.4 mg/dL (0.30-1.20); Total Protein 5.8 g/dL (6.2-8.2)
[2021-06-09] MEDS: ATORVASTATIN 40 MG TAB PO SCH (20:25)
[2021-06-09] MEDS ORDERED: Magnesium Replacement Protocol 1 EACH MISC MISCELLANE PRN (23:27)
--- NOTE | 2021-06-09 23:43 | P.PN ---
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 Patient was also having diarrhea at home for the past 5-6 days.. Patient has been having symptoms for the past several days. Also is complaining of nausea and did have one episode of vomiting. No complaints of abdominal pain. Patient has been afebrile. On admission blood pressure was 109/48 and pulse 112 and pulse ox 92% on room air. Laboratory data showed WBC 5.2 hemoglobin 12.1 and platelets 168 Lymphocytes 0.4 D-dimer 1.02 BUN 28 and creatinine 1.23 COVID-19 PCR detected. UA negative for infection LDH 783 CRP 5.0 and TSH 5.4 and free T4 level is 0.88 slight chest x-ray showed known right hilar mass or neoplasm. [place]. [id number] Patient is resting in the bed. Complains of generalized weakness. No complaints of chest pain or shortness breath. Patient has been afebrile. No nausea vomiting abdominal pain or diarrhea. Currently saturating well on room air. Patient is being continued Lovenox subcu and multivitamins due to COVID-19 infection. Patient is also on IV hydration with normal saline at 75 cc/h. Lab oratory data showed WBC 4.3 hemoglobin 10.5 and platelets 176 BUN 21 creatinine 1.0. Renal function has nearly normalized. Calcium 8.3. Urinalysis is negative for infection. Oncology has seen the patient. 06/07/2021 Patient is currently resting in bed. Awake alert and oriented x3. Patient did require 2 L oxygen via nasal cannula on and off. Currently on room air. No complaints of chest pain or shortness of. Patient still feels very weak. Patient has been afebrile. No nausea vomiting or diarrhea. Patient does have very poor appetite. Laboratory showed WBC 4.57, hemoglobin 10.0 and platelets 200 Sodium 139 potassium 3.7 chloride 106 bicarb is 23.5 BUN 10.9 and creatinine 0.8 patient is being current on IV hydration. Free T4 within normal limits. Oncology is on board. Patient is being continued on Lovenox subcu and multivitamins. 06/08/2021 Patient is currently resting in bed. Awake alert and oriented. No complaints of chest pain or shortness breath. Patient did require oxygen this morning and saturating at 97%. Titrate down to room air. Patient has been afebrile. Diarrhea has resolved. Patient still having generalized weakness. CTA showed no evidence of PE. Right hilar spiculated mass. Changes of COVID-19 pneumonia. Patient is being current Lovenox subcu and multivitamins and add dexamethasone 6 mg daily if continues to be hypoxic. Encourage incentive spirometry and oral intake. 06/09/2021 Patient is seen and evaluated this morning and continues on 2L via NC occasionally. Patient is having nausea and vomiting and not tolerating diet very well. Will continue zofran and add reglan as needed. Patient continues on vitamin and zinc supplements and lovenox and will continue. Encouraged incentive spirometer use and increased activity as tolerated. Patient was scheduled to start radiation treatments and follows with Dr. Dubose in the outpatient setting. Potassium and magnesium low and will replace per protocol and repeat am labs. Encourage oral intake. No reports of chest pain or palpitations, denies worsening shortness of breath, reports nausea with vomiting as mentioned previously. Patient is afebrile. Labs: sodium is 144, potassium is 3.3, creatinine is 0.8, magnesium is 1.2, crp is 7.8, wbc is 6.55, hgb is 10.3, platelets are 248 Current medications reviewed. Active Medications Acetaminophen (Acetaminophen Tab 325 Mg Tab) 650 mg PO Q6HR PRN PRN Reason: Mild Pain or Fever > 100.5 Last Admin: 06/08/21 19:50 Dose: 650 mg Documented by: Hydrocodone Bitart/Acetaminophen (Hydrocodone/Apap 5-325mg 1 Each Tab) 1 each PO Q6HR PRN PRN Reason: Pain Last Admin: 06/09/21 17:25 Dose: 1 each Documented by: Ascorbic Acid (Ascorbic Acid 500 Mg Tab) 500 mg PO DAILY [facility] Last Admin: 06/09/21 07:34 Dose: 500 mg Documented by: Aspirin (Aspirin 81 Mg) 81 mg PO DAILY [facility] [place] Last Admin: 06/09/21 07:34 Dose: 81 mg Documented by: Atorvastatin Calcium (Atorvastatin 40 Mg Tab) 40 mg PO HS [facility] [place] Last Admin: 06/09/21 20:25 Dose: 40 mg Documented by: Bupropion HCl (Bupropion Xl 300 Mg Tab.Er.24h) 300 mg PO DAILY [facility] [place] Last Admin: 06/09/21 07:33 Dose: 300 mg Documented by: Cholecalciferol (Cholecalciferol 25 Mcg (1000 Iu) Tablet) 25 mcg PO DAILY [facility] [place] Last Admin: 06/09/21 07:33 Dose: 25 mcg Documented by: Enoxaparin Sodium (Enoxaparin 40 Mg/0.4 Ml Syringe) 40 mg SQ DAILY [facility] [place] Last Admin: 06/09/21 07:34 Dose: 40 mg Documented by: Sodium Chloride (Saline 0.9%) 1,000 mls @ 75 mls/hr IV .[id number] [facility] [place] Last Admin: 06/09/21 13:28 Dose: 75 mls/hr Documented by: Levothyroxine Sodium (Levothyroxine 25 Mcg Tab) 25 mcg PO DAILY@0630 [facility] [place] Last Admin: 06/09/21 07:33 Dose: 25 mcg Documented by: Metoprolol Succinate (Metoprolol Succinate (Er) 50 Mg Tab.Er.24h) 50 mg PO DAILY [facility] [place] Last Admin: 06/09/21 07:33 Dose: 50 mg Documented by: Naloxone HCl (Naloxone 0.4 Mg/Ml 1 Ml Vial) 0.2 mg IV Q2M PRN PRN Reason: Opioid Reversal Ondansetron HCl (Ondansetron 4 Mg/2 Ml Vial) 4 mg IVP Q8HR PRN PRN Reason: Nausea And Vomiting Last Admin: 06/09/21 20:26 Dose: 4 mg Documented by: Pantoprazole Sodium (Pantoprazole 40 Mg Tablet) 40 mg PO -BRKFST [facility] [place] Zinc Sulfate (Zinc Sulfate 220 Mg Cap) 220 mg PO DAILY [facility] [place] Last Admin: 06/09/21 07:33 Dose: 220 mg Documented by: Physical Exam: Patient is lying in the bed comfortably, no acute distress, awake alert and oriented. Generalized weakness and fatigue.. HEENT: Normocephalic. Neck is supple. Pupils reactive. Nostrils clear. Oral cavity is moist. Neck reveals no JVD, carotid bruits, or thyromegaly. CHEST EXAMINATION: Trachea is central. Symmetrical expansion. Lung farrar clear to auscultation and percussion. CARDIAC: Normal S1, S2 with no gallops. No murmurs ABDOMEN: Soft. Bowel sounds normal. No organomegaly. No abdominal bruits. Extremities: reveal no edema. No clubbing or cyanosis Neurologically awake, alert, oriented x3 with well-coordinated movements. No focal deficits noted Skin: No rash or skin lesions. Psychiatric: Cooperative. Non-suicidal Musculoskeletal: No joint swelling or deformity. Normal range of motion. Assessment: Generalized weakness and fatigue and diarrhea Acute COVID-19 infection Acute kidney injury likely prerenal hypokalemia hypomagnesiumia Elevated intermittent markers Lung cancer currently completed 4 cycles of chemotherapy and is scheduled for radiation therapy on 06/06/2021 Previous history of smoking DVT prophylaxis with Lovenox subcu Full code Plan: Patient will be continued on IV hydration and replace electrolytes. Magnesium is 1.2 and potassium is 3.3 and will replace and repeat am labs. Patient continues with nausea and vomiting and will continue zofran and reglan as needed. Intermittently using 2L 02 via NC and denies any worsening shortness of breath. Patient reports generalized weakness and fatigue and inability to tolerate oral diet. Continue with multivitamins and Lovenox subcu. Oncology is following. Prognosis is guarded. Objective - Vital Signs Vital signs: Vital Signs Temp 98.1 F 06/09/21 07:00 Pulse 84 06/09/21 07:00 Resp 18 06/09/21 07:00 BP 131/78 06/09/21 07:00 Pulse Ox 96 06/09/21 07:00 Intake & Output 06/08/21 06/09/21 06/09/21 18:59 06:59 18:59 Intake Total 718 Balance 718 Intake: Intake, IV Titration 600 Amount Sodium Chloride 0.9% 1, 600 000 ml @ 75 mls/hr IV . [id number] TORI Rx#:[id number] Oral 118 Other: # Voids 7 2 - Labs CBC & Chem 7: 06/09/21 07:14 06/09/21 07:14 Labs: Microbiology - Last 24 Hours (Table) 06/06/21 18:16 Stool Culture - Preliminary Stool
[2021-06-09] MEDS ORDERED: METOCLOPRAMIDE 5 MG/ML 2 ML VIAL IVP PRN (23:56)
[2021-06-10] MEDS: HYDROcodone/APAP 5-325MG 1 EACH TAB PO PRN (01:41)
[2021-06-10] MEDS: MAGNESIUM SULFATE-D5W PMX 1 GM in DEXTROSE/WATER 1 100ML.BAG IVPB SCH ×3 (01:41→03:53)
[2021-06-10] MEDS: POTASSIUM CHLORIDE 10 MEQ in WATER FOR INJECTION 1 100ML.BAG IVPB SCH ×2 (02:42→02:46)
[2021-06-10] MEDS: SODIUM CHLORIDE 0.9% 1,000 ML IV SCH (03:53)
[2021-06-10] MEDS: LEVOTHYROXINE 25 MCG TAB PO SCH (06:07)
[2021-06-10 06:08] LABS: Basophils % (A) 0 %; Eosinophils # (A) 0.1 k/uL (0-0.7); Eosinophils % (A) 1 %; HCT 29.9 % (34.0-46.0); HGB 10.5 gm/dL (11.4-16.0); Lymphocytes # (A) 0.6 k/uL (1.0-4.8); Lymphocytes % (A) 10 %; MCH 34.2 pg (25.0-35.0); MCHC 35.2 g/dL (31.0-37.0); MCV 97.1 fL (80.0-100.0); Mean Platelet Volume 8.2; Monocytes # (A) 0.4 k/uL (0-1.0); Monocytes % (A) 7 %; Neutrophils # (A) 4.9 k/uL (1.3-7.7); Neutrophils % (A) 80 %; Platelet Count 283 k/uL (150-450); Poikilocytosis Slight; RBC 3.08 m/uL (3.80-5.40); RDW 13.6 % (11.5-15.5); WBC 6.1 k/uL (3.8-10.6)
[2021-06-10 06:31] LABS: African American GFR (CKD) 83 (>60 ml/min/1.73 sqM); Anion Gap 9 mmol/L; Blood Urea Nitrogen 7 mg/dL (7-17); Calcium 8.2 mg/dL (8.4-10.2); Carbon Dioxide 26 mmol/L (22-30); Chloride 103 mmol/L (98-107); Glucose 102 mg/dL (74-99); Magnesium 1.9 mg/dL (1.6-2.3); Non-African American GFR(CKD) 72 (>60 ml/min/1.73 sqM); Potassium 3.3 mmol/L (3.5-5.1); Sodium 138 mmol/L (137-145)
[2021-06-10] MEDS ORDERED: PANTOPRAZOLE 40 MG TABLET PO SCH (07:30)
[2021-06-10 08:20] VITALS: BP 138/73; PULSE 87; RESP 16; TEMP 98.1
[2021-06-10] MEDS: ZINC SULFATE 220 MG CAP PO SCH (08:36)
[2021-06-10] MEDS: ENOXAPARIN 40 MG/0.4 ML SYRINGE SQ SCH (08:37)
[2021-06-10] MEDS: CHOLECALCIFEROL 25 MCG (1000 IU) TABLET PO SCH (08:37)
[2021-06-10] MEDS: ASPIRIN 81 MG PO SCH (08:37)
[2021-06-10] MEDS: buPROPion XL 300 MG TAB.ER.24H PO SCH (08:37)
[2021-06-10] MEDS: ASCORBIC ACID 500 MG TAB PO SCH (08:37)
[2021-06-10] MEDS: METOPROLOL SUCCINATE (ER) 50 MG TAB.ER.24H PO SCH (08:37)
[2021-06-10] MEDS: ONDANSETRON 4 MG/2 ML VIAL IVP PRN (08:47)
[2021-06-10] MEDS ORDERED: POTASSIUM CHLORIDE ER 20 MEQ TAB.ER PO STA (10:35)
--- NOTE | 2021-06-10 19:05 | P.DS ---
Providers Date of admission: 06/06/21 10:19 Expected date of discharge: 06/10/21 Attending physician: Tong Dhaliwal Consults: 06/05/21 16:40 Consult Physician Routine Consulting Provider: Talisha Gallagher Consult Reason/Comments: Oncological care Do you want consulting provider notified?: Yes Primary care physician: Viky Lowery [facility] Course: Final diagnosis Generalized weakness and fatigue and diarrhea Acute COVID-19 infection Acute kidney injury likely prerenal, improving hypokalemia, improved hypomagnesiumia, replaced Elevated inflammatory markers of covid 19 Lung cancer currently completed 4 cycles of chemotherapy and is scheduled for radiation therapy on 06/06/2021 Previous history of smoking DVT prophylaxis Full code Discharge disposition Patient is being discharged in a stable condition with guarded prognosis to home. Patient will follow-up with Dr. Lowery in the outpatient setting upon discharge. Patient will also need to follow-up with oncology Dr. Gallagher on discharge. Patient to continue with covid and vitamin supplements. continue with antiemetics and follow up labs ordered. Total time taken is greater than 35 minutes. 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 Patient was also having diarrhea at home for the past 5-6 days.. Patient has been having symptoms for the past several days. Also is complaining of nausea and did have one episode of vomiting. No complaints of abdominal pain. Patient has been afebrile. On admission blood pressure was 109/48 and pulse 112 and pulse ox 92% on room air. Laboratory data showed WBC 5.2 hemoglobin 12.1 and platelets 168 Lymphocytes 0.4 D-dimer 1.02 BUN 28 and creatinine 1.23 COVID-19 PCR detected. UA negative for infection LDH 783 CRP 5.0 and TSH 5.4 and free T4 level is 0.88 slight chest x-ray showed known right hilar mass or neoplasm. No acute pulmonary process. 06/10/2021 Patient seen and evaluated this morning and currently sitting comfortably up in the chair on room air. Patient states she feels better and able to go home. Continues with occasional nausea although no reports of vomiting today. Tolerating oral intake although appetite continues to be poor. Encouraged fluids and rest. Patient is on room air and denies any worsening shortness of breath, slight cough. Patient to follow up with radiation oncology outpatient once recovered from Covid. . Currently no reports of chest pain, worsening shortness of breath, or palpitations. Patient is afebrile. Patient will be discharged home today. Guarded prognosis. Gen: This is 66-year-old female who is awake, alert and oriented 3, well- developed, well-nourished HEENT: Head is atraumatic, normocephalic. Pupils equal, round. Sclerae is anicteric. NECK: Supple. No JVD. No lymphadenopathy. No thyromegaly. LUNGS: Breath sounds are diminished at the bases with no wheezing or rhonchi noted. No intercostal retractions. HEART: S1, S2 are muffled ABDOMEN: Soft. non-distended, Bowel sounds are present. No masses. No tenderness. EXTREMITIES: no edema No calf tenderness. NEUROLOGICAL: Alert and oriented 3, no focal deficit SKIN: no rashes or lesions noted Please refer to medication reconciliation sheet for a list of medications. Patient Condition at Discharge: Fair Plan - Discharge Summary Discharge Rx Participant: No New Discharge Prescriptions: New HYDROcodone/APAP 5-325MG [Marilla 5-325] 1 each PO Q6HR PRN #6 tab PRN Reason: Pain Pantoprazole [Protonix] 40 mg PO AC-BRKFST 30 Days #30 tab Metoclopramide HCl [Reglan] 5 mg PO Q6HR PRN #20 tablet PRN Reason: Nausea Ascorbic Acid [Vitamin C] 500 mg PO DAILY #30 tab Cholecalciferol [Vitamin D3 (25 Mcg = 1000 Iu)] 25 mcg PO DAILY #30 tablet Zinc Sulfate [Orazinc] 220 mg PO DAILY 30 Days #30 cap Acetaminophen Tab [Tylenol] 650 mg PO Q6HR PRN tab PRN Reason: Mild Pain Or Fever > 100.5 Continue Aspirin [Adult Low Dose Aspirin EC] 81 mg PO DAILY Levothyroxine Sodium [Synthroid] 25 mcg PO DAILY Metoprolol Succinate [Toprol XL] 50 mg PO DAILY Magnesium Oxide [Magox 400] 400 mg PO DAILY Lansoprazole 30 mg PO DAILY diphenhydrAMINE [Benadryl] 25 mg PO HS PRN PRN Reason: Congestion Atorvastatin [Lipitor] 40 mg PO HS ondansetron HCL [Zofran] 8 mg PO TID PRN PRN Reason: Nausea Folic Acid 1 mg PO DAILY buPROPion XL [Wellbutrin XL] 300 mg PO DAILY Discontinued lisinopriL [Zestril] 5 mg PO HS Discharge Medication List Aspirin [Adult Low Dose Aspirin EC] 81 mg PO DAILY 01/20/21 [History] Atorvastatin [Lipitor] 40 mg PO HS 01/20/21 [History] Levothyroxine Sodium [Synthroid] 25 mcg PO DAILY 01/20/21 [History] Folic Acid 1 mg PO DAILY 06/05/21 [History] Lansoprazole 30 mg PO DAILY 06/05/21 [History] Magnesium Oxide [Magox 400] 400 mg PO DAILY 06/05/21 [History] Metoprolol Succinate [Toprol XL] 50 mg PO DAILY 06/05/21 [History] buPROPion XL [Wellbutrin XL] 300 mg PO DAILY 06/05/21 [History] diphenhydrAMINE [Benadryl] 25 mg PO HS PRN 06/05/21 [History] ondansetron HCL [Zofran] 8 mg PO TID PRN 06/05/21 [History] Acetaminophen Tab [Tylenol] 650 mg PO Q6HR PRN tab 06/10/21 [Rx] Ascorbic Acid [Vitamin C] 500 mg PO DAILY #30 tab 06/10/21 [Rx] Cholecalciferol [Vitamin D3 (25 Mcg = 1000 Iu)] 25 mcg PO DAILY #30 tablet 06/10/21 [Rx] HYDROcodone/APAP 5-325MG [Marilla 5-325] 1 each PO Q6HR PRN #6 tab 06/10/21 [Rx] Metoclopramide HCl [Reglan] 5 mg PO Q6HR PRN #20 tablet 06/10/21 [Rx] Pantoprazole [Protonix] 40 mg PO AC-BRKFST 30 Days #30 tab 06/10/21 [Rx] Zinc Sulfate [Orazinc] 220 mg PO DAILY 30 Days #30 cap 06/10/21 [Rx] Follow up Appointment(s)/Referral(s): Viky Lowery MD [Primary Care Provider] - 1-2 days Talisha Gallagher MD [STAFF PHYSICIAN] - 06/16/21 8:30 am Ambulatory/Diagnostic Orders: Basic Metabolic Panel [LAB.AMB] Time Frame: 3 Days, Location: None Selected Patient Instructions/Handouts: Coronavirus Disease 2019 (COVID-19), Dehydration (DC) Activity/Diet/Wound Care/Special Instructions: Activity Limited until follow-up Follow-up primary care provider on discharge Follow-up with oncology and radiation oncology outpatient Continue taking medications as prescribed Encourage fluids and rest Encouraged increased oral intake Discharge Disposition: HOME SELF-CARE
== END 2021-06-10 14:34 | disposition home or self-care (01) | DRG 177 ==
LOC: EC 14:26 → 6NMEDSUR 16:41 → OBSVTOIN 06-06 10:19
PROVIDERS: ADMIT Internal Medicine; ATTEND Internal Medicine
DX: U07.1 COVID-19 (principal); J12.82 Pneumonia due to coronavirus disease 2019; N17.9 Acute kidney failure, unspecified; C79.71 Secondary malignant neoplasm of right adrenal gland; A08.39 Other viral enteritis; C34.01 Malignant neoplasm of right main bronchus; E86.0 Dehydration; D63.0 Anemia in neoplastic disease; E03.9 Hypothyroidism, unspecified; E78.5 Hyperlipidemia, unspecified; I10 Essential (primary) hypertension; E87.6 Hypokalemia; K59.00 Constipation, unspecified; I25.10 Atherosclerotic heart disease of native coronary artery without angina pectoris; K21.9 Gastro-esophageal reflux disease without esophagitis; F41.0 Panic disorder [episodic paroxysmal anxiety]; F32.A Depression, unspecified; Z79.82 Long term (current) use of aspirin; Z79.890 Hormone replacement therapy; Z79.899 Other long term (current) drug therapy; Z87.891 Personal history of nicotine dependence; Z90.49 Acquired absence of other specified parts of digestive tract; Z87.19 Personal history of other diseases of the digestive system; Z95.5 Presence of coronary angioplasty implant and graft; Z92.21 Personal history of antineoplastic chemotherapy; Z98.890 Other specified postprocedural states; Z80.0 Family history of malignant neoplasm of digestive organs
CPT/HCPCS: 36415; 71046; 71275; 74177; 80048; 80053; 81003; 82784; 83605; 83615; 83735; 84100; 84439; 84443; 85025; 85379; 85610; 85730; 86140; 87045; 87046; 87635; 93005; 96374; 96375; 99285

== ENCOUNTER → 2021-07-07 | Outpatient (CLI) | payer MEDICARE | END | disposition home or self-care (01) | LOC: LABWHC1 11:45 | PROVIDERS: ATTEND Obstetrics & Gynecology | DX: C79.71 Secondary malignant neoplasm of right adrenal gland (principal); C34.2 Malignant neoplasm of middle lobe, bronchus or lung; J44.9 Chronic obstructive pulmonary disease, unspecified; Z20.822 Contact with and (suspected) exposure to COVID-19 | CPT/HCPCS: U0003; C9803; U0005 ==

== ENCOUNTER → 2021-08-15 | Outpatient (CLI) | payer MEDICARE ==
--- NOTE | 2021-08-18 06:20 | PE ---
EXAMINATION TYPE: PET CT fusion skull to thigh DATE OF EXAM: 08/15/2021 COMPARISON: Most recent CT June 08, 2021 and older studies. PET/CT May 02, 2021 HISTORY: Right-sided lung cancer diagnosed February 2021 currently on chemotherapy , history of radiati on treatment. TECHNIQUE: Following the intravenous administration of 12.41 mCi of F-18 FDG, whole body images are performed from the skull base to the midthigh. Images are reviewed on the computer in the coronal, a xial, and sagittal planes. Reconstructed rotating images are created on independent workstation and reviewed on the computer. A localization and attenuation correction CT is performed in conjunction with the PET scan. Blood glucose level equals 77 SCAN: Subsequent Scan FINDINGS: SKULL BASE AND NECK: Mild uptake throughout the bilateral thyroid lobes is present on current study. No new suspicious hypermetabolic uptake. CHEST, MEDIASTINUM, AND HILAR REGION: Background chronic emphysematous change redemonstrated. Persist ent increased soft tissue centrally at right hilar region with adjacent more confluent groundglass op acity right hilar level having anterior inferior right lung scarring. Mild hypermetabolic uptake in t he groundglass opacity. No hypermetabolic uptake in the more central soft tissue right hilar level. ABDOMEN AND PELVIS: No hypermetabolic adrenal masses. Nonspecific bowel uptake most prominent near th e hepatic flexure and sigmoid rectal colon. Normal excretion. No additional areas of abnormal hyperme tabolic uptake. OSSEOUS STRUCTURES: No areas of abnormal hypermetabolic uptake. OTHER CT: Mild calcified plaque bilateral carotid bulb level. Mild cardiomegaly with coronary artery calcification. Cholecystectomy clips redemonstrated. Scattered benign thin-walled cysts throughout the liver. There is 5.1 cm thin-walled cyst from the kidney. Moderate calcified plaque in the aorta extends into branc h vessels. Scar tissue vertically in the midline of the abdomen and pelvis. IMPRESSION: Positive treatment response to right hilar mass or neoplasm, no suspicious hypermetabolic uptake at this level to suggest residual active neoplasm. Surrounding mild hypermetabolic groundglas s opacity could reflect combination of recent infection and/or posttreatment change. No hypermetaboli c uptake to suggest abnormal adenopathy or metastatic disease.
== END | disposition home or self-care (01) ==
LOC: RADPETMAIN 09:59
PROVIDERS: ATTEND Internal Medicine Hematology & Oncology
DX: C34.2 Malignant neoplasm of middle lobe, bronchus or lung (principal)
CPT/HCPCS: 78815; A9552

== ENCOUNTER → 2021-12-19 | Outpatient (CLI) | payer MEDICARE ==
--- NOTE | 2021-12-19 16:26 | PE ---
Nuclear medicine PET/CT HISTORY: C 34.2, lung carcinoma, subsequent Patient received 10.9 mCi F-18 FDG intravenously and delayed scanning was performed from the skull ba se to the mid thighs. A localization and attenuation correction CT scan was performed. Correlation to prior nuclear medicine PET/CT 08/15/2021 Average mediastinal uptake SUV 2.3, average liver uptake SUV 3 Chest and neck: The right hilar soft tissue mass shows mild uptake, SUV is 3.2, improvement compared to prior exam. There is no cervical or supraclavicular adenopathy. No axillary adenopathy or mediasti nal adenopathy. No endobronchial lesion, pleural or pericardial effusion. There are coronary artery c alcifications present. Previous identified interstitial changes in the right upper lobe, right lower lobe and right middle lobe are less diffuse, some consolidation is present centrally with some air br onchograms at the level of the right hilum, thickening of the fissure also noted. ABDOMEN: Cysts are present within the liver. There is no evident adrenal mass or suspicious uptake. N o retroperitoneal adenopathy. Left renal cyst is present. There is no ascites. Patient is post cholec ystectomy. No free fluid or pelvic adenopathy. Uptake along the colon felt likely to be physiologic. Osseous structures show no suspicious uptake. IMPRESSION: There is improvement in the previously visualized right hilar mass.
== END | disposition home or self-care (01) ==
LOC: RADXRMAIN 08:50
PROVIDERS: ATTEND Internal Medicine Hematology & Oncology
DX: C34.2 Malignant neoplasm of middle lobe, bronchus or lung (principal)
CPT/HCPCS: 78815; A9552

== ENCOUNTER → 2022-04-17 | Outpatient (CLI) | payer MEDICARE ==
--- NOTE | 2022-04-17 16:24 | PE ---
Nuclear medicine PET CT HISTORY: Malignant neoplasm of middle lobe bronchus, lung carcinoma on the right, subsequent Patient received 12.3 mCi F-18 FDG intravenously and delayed scanning was performed from the skull ba se to the mid thighs. A localization and attenuation correction CT scan was performed. Correlation a prior nuclear medicine PET CT 12/19/2021 Average mediastinal uptake SUV 1.9, average liver uptake SUV 3 Chest and neck: There is no cervical or supraclavicular adenopathy. No mediastinal, axillary, or left hilar adenopathy. Right hilar mass is again noted with associated air bronchograms extending to the middle lobe is again noted and shows only mild uptake, SUV 2.3. There is no pleural or pericardial ef fusion. There are coronary artery calcifications. ABDOMEN: Uptake along the bowel is thought to be physiologic. There is no evidence of change in the a ppearance of the liver, cystic foci are present. Patient is post cholecystectomy. No adrenal mass. Co rtical cyst at the posterior aspect of the left upper kidney is again seen. There is uptake along the pancreas which is an interval finding. Diffuse uptake shows SUV 4.2. There is no evidence ascites. A theromatous change present within the aorta. Osseous structures show no suspicious uptake. Degenerative changes are present in the lower lumbar sp ine. IMPRESSION: There is been interval change with somewhat diffuse uptake within the pancreas, correlate for possible pancreatitis. Mild uptake in the right hilar mass is somewhat similar to prior exam.
== END | disposition home or self-care (01) ==
LOC: RADPETMAIN 09:47
PROVIDERS: ATTEND Internal Medicine Hematology & Oncology
DX: C34.2 Malignant neoplasm of middle lobe, bronchus or lung (principal)
CPT/HCPCS: 78815; A9552

== ENCOUNTER → 2023-01-08 | Outpatient (CLI) | payer MEDICARE ==
--- NOTE | 2023-01-11 08:56 | PE ---
EXAMINATION TYPE: PET CT fusion skull to thigh DATE OF EXAM: 01/08/2023 CLINICAL INDICATION:Female, 67 years old with history of C34.2 lung ca; TECHNIQUE: Following the intravenous administration of 11.0 mCi of F-18 FDG, whole body images are performed from the skull base to the midthigh. Images are reviewed on the computer in the coronal, a xial, and sagittal planes. Reconstructed rotating images are created on independent workstation and reviewed on the computer. A non-contrast CT is performed in conjunction with the PET scan. Glucose level 109 mg/dL COMPARISON: CT None, PET/CT 08/28/2022, FINDINGS: Mediastinal SUV mean is 1.8. Hepatic parenchyma SUV mean is 2.8. SKULL BASE AND NECK: No suspicious radiotracer activity. CHEST, MEDIASTINUM, AND HILAR REGION: Right perihilar mass max SUV 2.6, previously 2.2. The morphology of the consolidation with streaky at electasis extending to the periphery is unchanged. ABDOMEN AND PELVIS: No suspicious radiotracer activity. MUSCULOSKELETAL STRUCTURES: No suspicious radiotracer activity. OTHER CT: Bilateral carotid bifurcation atherosclerosis.. Mild cardiomegaly with moderate coronary ar matthew calcification. Cholecystectomy clips redemonstrated. Scattered benign thin-walled cysts througho ut the liver are again seen. There is 5.1 cm thin-walled partially exophytic cyst from the left kidne y redemonstrated. Moderate calcified plaque in the aorta extends into branch vessels. Chronic emphyse ma changes seen throughout the lungs. IMPRESSION: Stable right perihilar treated neoplasm with mildly increased uptake compared to prior, findings coul d be due to differences in technique. Attention on follow-up imaging. No new areas of abnormal hyperm etabolic uptake to suggest active neoplastic recurrence.
== END | disposition home or self-care (01) ==
LOC: RADPETMAIN 11:49
PROVIDERS: ATTEND Internal Medicine Hematology & Oncology
DX: C34.2 Malignant neoplasm of middle lobe, bronchus or lung (principal)
CPT/HCPCS: 78815; A9552

== ENCOUNTER → 2023-04-09 | Outpatient (CLI) | payer MEDICARE ==
--- NOTE | 2023-04-10 09:27 | PE ---
EXAMINATION TYPE: PET CT fusion skull to thigh DATE OF EXAM: 04/09/2023 CLINICAL INDICATION:Female, 67 years old with history of C34.2 LUNG CA; TECHNIQUE: Following the intravenous administration of 10.3 mCi of F-18 FDG, whole body images are performed from the skull base to the midthigh. Images are reviewed on the computer in the coronal, a xial, and sagittal planes. Reconstructed rotating images are created on independent workstation and reviewed on the computer. A non-contrast CT is performed in conjunction with the PET scan. Glucose level 104 mg/dL CT DLP: 424 mGycm, Automated exposure control for dose reduction was used. COMPARISON: CT 06/08/2021, PET/CT 01/08/2023, 08/31/2022 FINDINGS: Mediastinal SUV mean is 2.2. Hepatic parenchyma SUV mean is 2.9. SKULL BASE AND NECK: No suspicious radiotracer activity. CHEST, MEDIASTINUM, AND HILAR REGION: * Right perihilar mass max SUV 3.0, previously 2.6, and 2.2. The morphology of the consolidation wit h streaky atelectasis extending to the periphery is unchanged. * No new areas are identified. ABDOMEN AND PELVIS: No suspicious radiotracer activity. MUSCULOSKELETAL STRUCTURES: No suspicious radiotracer activity. OTHER CT: Bilateral carotid bifurcation atherosclerosis.. Mild cardiomegaly with moderate coronary ar matthew calcification. Cholecystectomy clips redemonstrated. Scattered benign thin-walled cysts througho ut the liver are again seen. There is 5.1 cm thin-walled partially exophytic cyst from the left kidne y redemonstrated. Moderate calcified plaque in the aorta extends into branch vessels. Chronic emphyse ma changes seen throughout the lungs. IMPRESSION: Redemonstration of right perihilar treated neoplasm with mildly increased uptake compared to prior, g iven elevation has been demonstrated on 2 consecutive PET/CT exams findings are concerning now residu al disease.
== END | disposition home or self-care (01) ==
LOC: RADPETMAIN 10:22
PROVIDERS: ATTEND Internal Medicine Hematology & Oncology
DX: C34.2 Malignant neoplasm of middle lobe, bronchus or lung (principal)
CPT/HCPCS: 78815; A9552

== ENCOUNTER → 2023-07-15 | Outpatient (CLI) | payer MEDICARE ==
--- NOTE | 2023-07-19 15:45 | PE ---
EXAMINATION TYPE: PET CT fusion skull to thigh DATE OF EXAM: 07/15/2023 COMPARISON: No recent pertinent CT. Prior PET/CT: Most recent 04/09/2023 HISTORY: Lung cancer TECHNIQUE: Following the intravenous administration of 11.96 mCi of F-18 FDG, whole body images are performed from the skull base to the midthigh. Images are reviewed on the computer in the coronal, a xial, and sagittal planes. Reconstructed rotating images are created on independent workstation and reviewed on the computer. A localization and attenuation correction CT is performed in conjunction with the PET scan. DLP: 270.48 mGycm SCAN: Subsequent Blood glucose: 93 mg/dL Average Mediastinum SUV: 2.71 Average Liver SUV: 3.32 FINDINGS: NECK: No abnormal uptake THORAX: There is intermediate uptake within the left suprahilar mass, SUV 3.12. ABDOMEN: No abnormal uptake. Photopenic defect at the suspected hepatic cyst is present. There is a s mall focal area of uptake of uncertain etiology near the hepatic hilum and gallbladder fossa., Image 123, SUV 5.34. PELVIS: No abnormal uptake OSSEOUS STRUCTURES: There is some mild uptake within a left upper thoracic facet. Image 53, SUV 3.21. Degenerative change and metastasis could be considered. LOCALIZATION CT: Right hilar mass is again evident. Some coronary artery calcification is noted. Hypo dense lesion within the liver likely is a hepatic cyst COMPARISON: The uptake within the right hilar region is slowly increasing in is minimally elevated cu rrently in relation to the background. IMPRESSION: 1. Mild elevation of the right perihilar uptake slightly above background. This is elevating from anabelle or examinations. Underlying residual neoplasm should be considered. 2. New abnormal uptake near the hepatic hilum and gallbladder bed fossa. Metastatic lymph node could be considered.
== END | disposition home or self-care (01) ==
LOC: RADPETMAIN 10:19
PROVIDERS: ATTEND Internal Medicine Hematology & Oncology
DX: C34.2 Malignant neoplasm of middle lobe, bronchus or lung (principal); R93.2 Abnormal findings on diagnostic imaging of liver and biliary tract
CPT/HCPCS: 78815; A9552

== ENCOUNTER → 2023-09-21 | Outpatient (CLI) | payer MEDICARE ==
[2023-09-21 10:58] LABS: African American GFR (CKD) 48 (>60 ml/min/1.73 sqM); Blood Urea Nitrogen 23 mg/dL (7-17); Non-African American GFR(CKD) 42 (>60 ml/min/1.73 sqM)
--- NOTE | 2023-09-22 11:49 | CT ---
EXAMINATION TYPE: CT Chest Abd Pelvis w con CT DLP: 1491 mGycm, Automated exposure control for dose reduction was used. DATE OF EXAM: 09/21/2023 11:28 AM COMPARISON: CT abdomen and pelvis 05/10/2021 CLINICAL INDICATION:Female, 68 years old with history of C34.2 LUNG CANCER; [facility], Abnormal PET scan. H x of lung cancer. Technique: CT Chest Abd Pelvis w con; Multiple axial images were obtained. Two-dimensional coronal an d sagittal reconstructions were obtained. Contrast used:80ml mL of Isovue 370 with IV Contrast, Oral contrast used: with Oral Contrast Findings: CHEST: LUNGS/ PLEURA: Chronically enlarged right hilar lymph node and soft tissue density inferiorly fibers scarlike tissue extending out toward the right lateral thorax is noticeably smaller than the prior ex am from 06/08/2021. Lungs are otherwise clear. AIRWAY: Patent and unremarkable. HEART: Size within normal limits. MEDIASTINUM: No additional lymph nodes are identified. VASCULATURE: No aortic aneurysm. MUSCULOSKELETAL: No acute osseous abnormalities. SOFT TISSUES/LYMPH NODES: Unremarkable. LOWER NECK: No significant findings. ABDOMEN: ABDOMEN LIVER: Unremarkable. 3 benign liver cysts are stable since the 2020 prior exam GALLBLADDER AND BILE DUCTS: The gallbladder is surgically absent. PANCREAS: Unremarkable. SPLEEN: Unremarkable. ADRENAL GLANDS: Unremarkable. KIDNEYS AND URETERS: No evidence of hydronephrosis or renal calculus. The ureters are unremarkable. PELVIS BLADDER: Unremarkable REPRODUCTIVE: Unremarkable. ABDOMEN & PELVIS STOMACH AND BOWEL: No evidence of bowel obstruction. PERITONEUM: No evidence of pneumoperitoneum or free fluid. VASCULATURE: No evidence of aortic aneurysm. MUSCULOSKELETAL: No acute osseous abnormalities LYMPH NODES: No gross evidence for lymphadenopathy. SOFT TISSUE/ABDOMINAL WALL: Unremarkable IMPRESSION: Compared to prior exam from 06/08/2021, Noticeably smaller right hilar lymph node/soft tissue density and fibrous scar extending to the periphery of the right lung nearly to the chest wall.
== END | disposition home or self-care (01) ==
LOC: RADCTMAIN 09:40
PROVIDERS: ATTEND Internal Medicine Hematology & Oncology
DX: C34.2 Malignant neoplasm of middle lobe, bronchus or lung (principal); E03.9 Hypothyroidism, unspecified; I25.10 Atherosclerotic heart disease of native coronary artery without angina pectoris; E78.5 Hyperlipidemia, unspecified
CPT/HCPCS: 82565; 84520; 71260; 74177; 36415; Q9967

== ENCOUNTER → 2023-12-21 | Outpatient (CLI) | payer MEDICARE ==
[2023-12-21 14:13] LABS: African American GFR (CKD) 50 (>60 ml/min/1.73 sqM); Blood Urea Nitrogen 22 mg/dL (7-17); Non-African American GFR(CKD) 43 (>60 ml/min/1.73 sqM)
--- NOTE | 2023-12-21 15:54 | CT ---
EXAMINATION TYPE: CT ChestAbdPelvis w con DATE OF EXAM: 12/21/2023 COMPARISON: 09/21/2023 HISTORY: lung ca CT DLP: 738.6 mGycm CONTRAST: CT scan of the chest, abdomen and pelvis is performed with Oral Contrast and with IV Contrast, patien t injected with 100 mL of Isovue 300. CT Chest: LUNGS: Right hilar mass measures 2.6 cm versus 2.5 cm previously. There is adjacent linear parenchyma l scar. No new nodules or masses identified. MEDIASTINUM: Thoracic aorta is of normal caliber. The heart is not enlarged. No evidence for media stinal mass or adenopathy. HILAR STRUCTURES: As above. OTHER: No significant abnormality. CONTRAST CT ABDOMEN AND PELVIS FINDINGS: LIVER/GB: The gallbladder is surgically absent. No space occupying hepatic lesion. Biliary tree is of normal caliber. PANCREAS: No inflammation. No distinct mass. SPLEEN: No splenic enlargement. No lesion seen. ADRENALS: No nodule. No thickening. KIDNEYS/BLADDER: No hydronephrosis. No nephrolithiasis. Renal cystic changes are stable. BOWEL: Normal appendix. Normal bowel caliber. No inflammation. GENITAL ORGANS: No gross abnormality. LYMPH NODES: No greater than 1cm abdominal or pelvic lymph nodes are appreciated. AORTA: No significant abnormality. OSSEOUS STRUCTURES: No significant abnormality is seen. OTHER: No significant additional abnormality is seen. IMPRESSION: 1. Essentially stable right hilar mass. 2. No CT evidence to suggest metastatic disease at this time.
== END | disposition home or self-care (01) ==
LOC: RADCTMAIN 13:17
PROVIDERS: ATTEND Internal Medicine Hematology & Oncology
DX: C34.2 Malignant neoplasm of middle lobe, bronchus or lung (principal); I10 Essential (primary) hypertension; Z71.3 Dietary counseling and surveillance; E78.5 Hyperlipidemia, unspecified; E03.9 Hypothyroidism, unspecified; I25.10 Atherosclerotic heart disease of native coronary artery without angina pectoris
CPT/HCPCS: 82565; 84520; 71260; 74177; 36415; Q9967

== ENCOUNTER → 2024-01-04 | Outpatient (CLI) | payer MEDICARE ==
--- NOTE | 2024-01-08 17:30 | MM ---
Reason for Exam: Screening (asymptomatic). Patient History: Menarche at age 11. First Full-Term at age 18. Postmenopausal. Previous chest radiation therapy at age 66. Previous chemotherapy at age 66. Risk Values: Carmina 5 year model risk: 1.5%. NCI Lifetime model risk: 4.5%. Prior Study Comparison: No prior studies available for comparison. Tissue Density: The breasts are heterogeneously dense, which may obscure small masses. Findings: Analyzed By CAD. There are bilateral areas of asymmetric density for which further evaluation is recommended. The most suspicious is a smaller focal asymmetry approximately 2 to 3:00 position left breast middle depth denoted by a cachil dehe and arrows. Additional views as well as ultrasound is recommended. No suspicious microcalcification seen. Overall Assessment: Incomplete: need additional imaging evaluation, BI-RAD 0 Management: Special View Mammogram of both breasts. Diagnostic Breast Ultrasound of the left breast. . [facility] will attempt to contact patient to return for supplemental views and ultrasound if indicated. Electronically signed and approved by: Swati Smith M.D. Radiologist
== END | disposition home or self-care (01) ==
LOC: RADMAMWWP 13:34
PROVIDERS: ATTEND Internal Medicine Hematology & Oncology
DX: Z12.31 Encounter for screening mammogram for malignant neoplasm of breast (principal); C34.2 Malignant neoplasm of middle lobe, bronchus or lung; E03.9 Hypothyroidism, unspecified; I25.10 Atherosclerotic heart disease of native coronary artery without angina pectoris; E78.5 Hyperlipidemia, unspecified; I10 Essential (primary) hypertension; Z78.0 Asymptomatic menopausal state; Z71.3 Dietary counseling and surveillance
CPT/HCPCS: 77063; 77067

== ENCOUNTER → 2024-01-13 | Outpatient (CLI) | payer MEDICARE ==
--- NOTE | 2024-01-13 10:00 | USB ---
Reason for Exam: Additional evaluation requested from abnormal screening. Patient History: Menarche at age 11. First Full-Term at age 18. Postmenopausal. Previous chest radiation therapy at age 66. Previous chemotherapy at age 66. Risk Values: Carmina 5 year model risk: 1.5%. NCI Lifetime model risk: 4.5%. Technique: Method: Targeted. Prior Study Comparison: 01/04/2024 Bilateral MG 3D screening mammo w/cad, [facility]. Findings: The lateral section of the breast of the left breast, the axilla of the left breast and the retroareolar of the left breast were scanned. There is a 0.5 x 0.4 x 0.2 cm hypoechoic area which may be parenchymal tissue within echogenic tissue. Short-term follow-up can be performed. This is located 12:00 position 5 cm from the nipple. Some vague shadowing may be present at 3:00 position 4 cm from nipple. This is very indistinct potentially correlating with the mammographic finding. Recommend evaluation with 3-D stereotactic core biopsy. Overall Assessment: Suspicious, BI-RAD 4 Management: Stereotactic Core Biopsy of the left breast. A clinical breast exam by your physician is recommended on an annual basis and results should be correlated with mammographic findings. This exam should not preclude additional follow-up of suspicious palpable abnormalities. Results were given to the patient verbally at the time of exam. Electronically signed and approved by: Modesto Marcelo D.O. Radiologis
--- NOTE | 2024-01-17 11:49 | MM ---
Reason for Exam: Additional evaluation requested from abnormal screening. Last screening mammogram was performed less than 1 month ago. Patient History: Menarche at age 11. First Full-Term at age 18. Postmenopausal. Previous chest radiation therapy at age 66. Previous chemotherapy at age 66. Risk Values: Carmina 5 year model risk: 1.5%. NCI Lifetime model risk: 4.5%. Prior Study Comparison: 01/04/2024 Bilateral MG 3D screening mammo w/cad, [facility]. Tissue Density: There are scattered areas of fibroglandular density. Findings: Analyzed By CAD. The overall pattern is symmetrical. Under compression on the craniocaudal view there is a spiculated area outer left breast. Additional workup with ultrasound is recommended. No suspicious groups of microcalcifications, spiculated or lobular masses, architectural distortion or other secondary signs of malignancy are mammographically apparent. Overall Assessment: Incomplete: need additional imaging evaluation, BI-RAD 0 Management: Diagnostic Breast Ultrasound of the left breast. A negative mammogram report should not preclude additional follow up of suspicious palpable abnormalities. Patient should continue monthly self breast exam. A clinical breast exam by your physician is recommended on an annual basis and results should be correlated with mammographic findings. Note on Carmina scores and lifetime risk: 1. A Carmina score greater than 3% is considered moderate risk. If this is the case, consider specialist referral to assess eligibility for a risk reducing agent. 2. If overall lifetime risk for the development of breast cancer is 20% or higher, the patient may qualify for future screening with alternating mammogram and breast MRI. Electronically signed and approved by: Modesto Marcelo D.O. Radiologis
== END | disposition home or self-care (01) ==
LOC: RADMAMWWP 08:34
PROVIDERS: ATTEND Internal Medicine Hematology & Oncology
DX: R92.323 Mammographic fibroglandular density, bilateral breasts (principal); R92.8 Other abnormal and inconclusive findings on diagnostic imaging of breast; Z78.0 Asymptomatic menopausal state; Z92.3 Personal history of irradiation
CPT/HCPCS: 77066; 76642; G0279; 77062

== ENCOUNTER → 2024-01-20 | Day surgery (SDC) | payer MEDICARE ==
[2024-01-20] MEDS: ALPRAZolam 0.25 MG TAB PO PRN (10:16)
[2024-01-20 10:27] VITALS: RESP 16
[2024-01-20 11:39] VITALS: BP 160/88; PULSE 67; TEMP 98.1
--- NOTE | 2024-01-26 10:34 | MM ---
Risk Values: Carmina 5 year model risk: 1.5%. NCI Lifetime model risk: 4.5%. Prior Study Comparison: 01/04/2024 Bilateral MG 3D screening mammo w/cad, [facility]. 01/13/2024 Bilateral MG 3D work up w/cad MARILYN, [facility]. Pathology Description: Marker Left Behind. Approach: CC FA Needle Type: Eviva Cores: 6 Skin Nicks: 1 Gauge: 9 The procedure of stereotactic guided core biopsy was explained to the patient. Benefits, alternatives, and risks were discussed. An informed consent was then obtained. The shortness pathway for biopsy was chosen. [facility] approach. Targeting and procedure performed by Dr. Marcelo. A vacuum assisted biopsy gun was used to obtain 6 core samples. The patient tolerated the procedure well without any immediate complication. The patient was kept in the radiology department for short stay after the procedure and then discharged home in stable condition. Core marker is within the region of the architectural distortion. Post biopsy mammogram shows the clip to appear in satisfactory position relative to the targeted area of concern on the preprocedure images. Impression: SUCCESSFUL, UNCOMPLICATED STEREOTACTIC GUIDED CORE BIOPSY OF AREA OF CONCERN IN THE left BREAST. Pathology Results: Result: Malignant, Invasive ductal carcinoma. Pathology and radiology were reviewed. Findings are concordant. LEFT BREAST, STEREOTACTIC NEEDLE CORE BIOPSY: Invasive well differentiated ductal carcinoma (Grade 1). See Surgical Pathology Cancer Case Summary and Comment. Overall Assessment: Malignant Management: Surgical Consultation of the left breast. Electronically signed and approved by: Modesto Marcelo D.O. Radiologis
== END ==
LOC: RADMAMWWP 10:05
PROVIDERS: ATTEND Internal Medicine Hematology & Oncology
DX: C50.912 Malignant neoplasm of unspecified site of left female breast (principal); R92.8 Other abnormal and inconclusive findings on diagnostic imaging of breast
CPT/HCPCS: 88305; 88342; 88341; 19081; A4648; J2001

== ENCOUNTER 2024-02-14 10:00 | Day surgery (SDC) | payer MEDICARE ==
[~2024-02-14 10:00] MED LIST changes: +ACETAMINOPHEN TAB 500 MG TAB ONE; -ALBUTEROL NEB (CONC) 2.5 MG/0.5 ML INHALATION ONE; +ALPRAZolam 0.5 MG TAB ONE; -ATROPINE SULFATE 0.4 MG/ML 1 ML VIAL IM ONE; +BUPIVACAINE (PF) 0.25% 10 ML VIAL ONE; +DEXAMETHASONE SOD PHOSPHATE 4 MG/ML 1 ML VIAL ONE; +HEPARIN SODIUM,PORCINE 5,000 UNIT/ML 1 ML VIAL ONE; +IPRATROPIUM-ALBUTEROL 3 ML NEB ONE; +LACTATED RINGERS 1,000 ML BAG ONE; -LACTATED RINGERS 1,000 ML IV SCH; -LIDOCAINE 1% (10MG/ML) FOR IV START INTRADERMA PRN; -LIDOCAINE 2% (PF) 20 MG/ML 5 ML VIAL INHALATION ONE; -LIDOCAINE VISCOUS 300 MG/15 ML CUP MUCOUS MEM ONE; +ONDANSETRON 4 MG/2 ML VIAL ONE; -SODIUM CHLORIDE 0.9% 1,000 ML IV SCH; +SODIUM CHLORIDE 0.9% IRRIG 1,000 ML BTL IRRIGATION ONE
[2024-02-14] MEDS ORDERED: LIDOCAINE 1% INJ 10MG/ML (20 ML MDV) ONE (10:55)
[2024-02-14] MEDS ORDERED: fentaNYL (PF) 50 MCG/ML 2 ML AMP ONE (10:55)
[2024-02-14] MEDS ORDERED: ETOMIDATE 2 MG/ML 10 ML VIAL ONE (10:55)
[2024-02-14] MEDS ORDERED: HYDROmorphone 0.5 MG/0.5 ML SYRINGE ONE (13:12)
--- NOTE | 2024-02-25 15:52 | OP ---
OPERATIVE REPORT DATE OF SERVICE : 02/14/2024 PREOPERATIVE DIAGNOSIS: Left breast cancer. POSTOPERATIVE DIAGNOSIS: Left breast wire localization lumpectomy. ANESTHESIA: General. COMPLICATIONS: None. OPERATIVE PROCEDURE: The patient was brought and placed on the operating table in the supine position. The patient's left breast was prepped and draped sterilely. The wire was entered in the left breast at the 3 o'clock location directed medially. A curvilinear incision was made just anterior to the wire entry site. Our initial dissection was to bring the wire out of the incision site. Following that, we entered into the breast tissue a few centimeters, at which point, a lumpectomy took place around the distal aspect of the wire. Once the lumpectomy specimen was removed from the breast, I palpated the margins, and I felt like our inferior and posterior margin may be slightly close. A new inferior and posterior margin was taken as one piece. The operative field was inspected. No bleeding was seen. Clips were used to delineate the lumpectomy cavity. The subcutaneous tissues there were closed using 2-0 and 3-0 Vicryl sutures. The skin was then reapproximated using a running 4-0 Monocryl suture. Skin glue and sterile dressings were applied. The new margin inferior/posterior was painted on the new margin side with appropriate colors of green and purple. The initial lumpectomy specimen was painted as well. Unfortunately, when I was painting this, the inferior and the superior margin were pained to the opposite colors so that the inferior was black and superior was green. The remaining 4 colors were as per usual. These were sent to Pathology. MMODL / IJN: [id number] /
--- NOTE | 2024-03-16 12:55 | MM ---
Pathology Description: Approach: Lateral to Medial Needle Type: 7 cm Kowilma The needle localization procedure with wire placement for surgical excision was explained to the patient. Benefits, alternatives, and risks were discussed. An informed consent was then obtained. A timeout was performed. The overlying skin was prepped in usual sterile fashion. Lidocaine was used as anesthetic into the skin and subcutaneous tissue up to the level of area of concern. A 7 cm needle was used. It was placed using a lateral approach under mammographic guidance. Subsequent 90 degrees mammogram show the needle to be in satisfactory position relative to the targeted area. The wire was placed and the needle was withdrawn. The wire was fixed to patient's skin. Images were marked for surgeon. The patient tolerated the procedure well without any immediate complication. The patient was kept in the radiology department for short stay after the procedure and then taken to surgery for surgical excision. Specimen: Biopsy marker and wire are identified in specimen mammogram. Impression: 1. Successful needle localization with wire placement and surgical excision of biopsy marker. Pathology Results: Result: Malignant, Invasive ductal carcinoma. A. BREAST TISSUE, NEW INFERIOR AND POSTERIOR MARGINS, EXCISION: New inferior and posterior margins negative for carcinoma. B. LEFT BREAST, LUMPECTOMY: Invasive well-differentiated ductal carcinoma, Grade 1, with features compatible with tubular carcinoma (see Surgical Pathology Cancer Case Summary and comment). All margins negative for carcinoma. Overall Assessment: Malignant Management: Surgical Consultation of the left breast. Electronically signed and approved by: Modesto Marcelo D.O. Radiologis
== END 2024-02-14 15:21 ==
LOC: OR 10:00
PROVIDERS: ATTEND Surgery
DX: C50.912 Malignant neoplasm of unspecified site of left female breast
CPT/HCPCS: 76098; 88307; 88342

== ENCOUNTER → 2024-03-14 | Outpatient (CLI) | payer MEDICARE ==
--- NOTE | 2024-03-15 10:00 | BD ---
EXAMINATION TYPE: Axial Bone Density DATE OF EXAM: 03/14/2024 CLINICAL HISTORY: 68 years old Female. ICD-10 CODE: [id number], C342, E039, [id number] Height: 65 Weight: 152.2 FRAX RISK QUESTIONS: Alcohol (3 or more units per day): no Family History (Parent hip fracture): mother Glucocorticoids (More than 3mos): no (Ex: prednisone, prednisolone, methylprednisolone, dexamethasone, and hydrocortisone). History of Fracture in Adulthood: no Secondary Osteoporosis: 1. Type 1 Diabetes: no 2. Hyperthyroidism: no 3. Menopause before 45: no 4. Malnutrition: no 5. Chronic liver disease: no Rheumatoid Arthritis: no Current Tobacco Use: yes RISK FACTORS HISTORY OF: Hip Fracture (Right/Left): no Spine Fracture: no History of Wrist Fracture: no Surgery to Spine/Hip(right/left)/Wrist (right/left): no MEDICATIONS: Thyroid Medications: Levothyroxine How Long: past 3 years Osteoporosis Medications: no EXAM MEASUREMENTS: Bone mineral densitometry was performed using the [employer] System. Bone mineral density as measured about the Lumbar spine is: ----- L1-L4(G/cm2): 1.333 T Score Values are as follows: ----- L1: 1.5 ----- L2: 0.2 ----- L3: 1.5 ----- L4: 1.5 ----- L1-L4: 1.3 Z Score Values are as follows: ----- L1: 3.1 ----- L2: 1.8 ----- L3: 3.1 ----- L4: 3.1 ----- L1-L4: 2.8 Baseline Study Bone mineral density about the R hip (g/cm2): 1.090 Bone mineral density about the L hip (g/cm2): 1.001 T Score values are as follows: -----R Neck: 0.6 -----L Neck: -0.9 -----R Total: 0.7 -----L Total: -0.1 Z Score values are as follows: -----R Neck: 2.2 -----L Neck: 0.7 -----R Total: 2.1 -----L Total: 1.4 Baseline Study FRAX%s: The graph provided illustrates a 8.8% chance for a major osteoporotic fx and a 1.5% chance fo r the hips probability for fx in 10 years time. IMPRESSION: Normal (Values between +1 and -1 indicate normal bone mass). Consider repeating this study in 5 year s or sooner if there is some new clinical indication. NOTE: T-SCORE=SD OF THE YOUNG ADULT MEAN.
== END | disposition home or self-care (01) ==
LOC: RADBDWWP 15:02
PROVIDERS: ATTEND Internal Medicine Hematology & Oncology
DX: M81.0 Age-related osteoporosis without current pathological fracture
CPT/HCPCS: 77080

== ENCOUNTER → 2024-05-08 | Outpatient (CLI) | payer MEDICARE ==
[2024-05-08 11:32] LABS: African American GFR (CKD) 47 (>60 ml/min/1.73 sqM); Blood Urea Nitrogen 29 mg/dL (7-17); Non-African American GFR(CKD) 41 (>60 ml/min/1.73 sqM)
--- NOTE | 2024-05-08 13:58 | CT ---
EXAMINATION TYPE: CT ChestAbdPelvis w con CT DLP: 673.2 mGycm, Automated exposure control for dose reduction was used. DATE OF EXAM: 05/08/2024 1:25 PM COMPARISON: CT chest abdomen and pelvis 09/21/2023, PET CT 07/15/2023, 04/09/2023 CLINICAL INDICATION:Female, 68 years old with history of C34.2 lung cancer; PHH, f/u lung ca Technique: Multiple axial images of the chest, abdomen, and pelvis were obtained following the intrav enous administration of 100 mL Isovue-300. Oral contrast was administered. Two-dimensional coronal an d sagittal reconstructions were obtained. Findings: CHEST: LUNGS/ PLEURA: No pleural effusion, pneumothorax, or focal consolidation. Stable posttreatment baez es of the right perihilar region with right hilar soft tissue measuring up to 2.5 cm (series 3, image 26). There is some surrounding linear scarring. No new suspicious pulmonary nodule or mass. AIRWAY: Patent and unremarkable.. HEART: Size within normal limits. No pericardial effusion.. MEDIASTINUM: No evidence of adenopathy. VASCULATURE: No aortic aneurysm. Mild atherosclerotic calcification of the aorta and its branches. MUSCULOSKELETAL: No acute osseous abnormalities. No aggressive osseous lesion. Mild multilevel degene rative disc disease. SOFT TISSUES/LYMPH NODES: Biopsy/surgical clips identified within the left breast. LOWER NECK: No significant findings. ABDOMEN: ABDOMEN LIVER: Stable hypodense hepatic lesions from prior examination with largest within the right hepatic dome measuring up to 3.2 cm. Most consistent with cysts. GALLBLADDER AND BILE DUCTS: The gallbladder is surgically absent. No biliary duct dilatation. PANCREAS: Unremarkable. SPLEEN: Unremarkable. ADRENAL GLANDS: Unremarkable. KIDNEYS AND URETERS: No evidence of hydronephrosis. Bilateral nonobstructing renal calculi identified with largest on the right measuring up to 3 mm. Largest on the left measures up to 3 mm. The kidneys enhance symmetrically. Stable left renal 4.3 cm cyst. Contrast is demonstrated within both collectin g systems on the delayed phase. PELVIS BLADDER: Unremarkable REPRODUCTIVE: Unremarkable. ABDOMEN & PELVIS STOMACH AND BOWEL: Stomach and duodenum are unremarkable. No focal bowel wall thickening or surroundi ng inflammatory changes. The appendix is within normal limits. Enteric contrast is reaches the ileoce susana junction. No evidence of bowel obstruction. PERITONEUM: No evidence of pneumoperitoneum or free fluid. VASCULATURE: Mild atherosclerotic calcifications are present throughout the abdominal aorta and its b ranches. No abdominal aortic aneurysm. MUSCULOSKELETAL: No acute osseous abnormalities. No aggressive osseous lesion. Mild multilevel degene rative disc disease. Grade 1 anterolisthesis of L4 on L5 without pars defects. LYMPH NODES: No evidence for lymphadenopathy. SOFT TISSUE/ABDOMINAL WALL: Unremarkable IMPRESSION: Overall stable examination with stable right hilar treated lesion. Demonstrated mild FDG activity on prior PET CT which was concerning for residual neoplasm. No CT evidence to suggest metastatic disease . [facility], , 05/08/2024 1:56 PM
== END | disposition home or self-care (01) ==
LOC: RADCTMAIN 10:42
PROVIDERS: ATTEND Internal Medicine Hematology & Oncology
DX: C34.2 Malignant neoplasm of middle lobe, bronchus or lung (principal); Z85.3 Personal history of malignant neoplasm of breast; I70.0 Atherosclerosis of aorta; M51.369 Other intervertebral disc degeneration, lumbar region without mention of lumbar back pain or lower extremity pain; N28.1 Cyst of kidney, acquired; N20.0 Calculus of kidney; E03.9 Hypothyroidism, unspecified; I25.10 Atherosclerotic heart disease of native coronary artery without angina pectoris; E78.5 Hyperlipidemia, unspecified
CPT/HCPCS: 82565; 84520; 71260; 74177; 36415; Q9967

== ENCOUNTER → 2024-09-04 | Outpatient (CLI) | payer MEDICARE ==
[2024-09-04 14:21] LABS: African American GFR (CKD) 40 (>60 ml/min/1.73 sqM); Blood Urea Nitrogen 30 mg/dL (7-17); Non-African American GFR(CKD) 35 (>60 ml/min/1.73 sqM)
--- NOTE | 2024-09-04 19:05 | CT ---
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 Two-dimensional coronal and sagittal reconstructions were obtained. Contrast used:80 mL of Isovue 300 with IV Contrast, (None if empty) Oral contrast used: with Oral Contrast CT DLP: 919.2 mGycm, Automated exposure control for dose reduction was used. Findings: CHEST: LUNGS/ PLEURA: * No pleural effusion, pneumothorax, or focal consolidation. * Right perihilar lymph node measuring up to 22 mm previously 25 possibly due to slice selection and measuring technique. Scarring extending up into the towards the periphery noted. Coronal morphology is not that different from prior. * No new suspicious pulmonary nodule or mass. AIRWAY: Patent and unremarkable.. HEART: Size within normal limits. No pericardial effusion.. MEDIASTINUM: No evidence of adenopathy. VASCULATURE: No aortic aneurysm. Mild atherosclerotic calcification of the aorta and its branches. MUSCULOSKELETAL: No acute osseous abnormalities. No aggressive osseous lesion. Mild multilevel degene rative disc disease. SOFT TISSUES/LYMPH NODES: Surgical clips in the left breast. LOWER NECK: No significant findings. ABDOMEN: ABDOMEN LIVER: Similar irregular margined hypodense probable cyst measuring 31 mm in the segment 4A. There ar e scattered cysts present. Abnormalities most consistent with cysts. GALLBLADDER AND BILE DUCTS: The gallbladder is surgically absent. No biliary duct dilatation. PANCREAS: Unremarkable. SPLEEN: Unremarkable. ADRENAL GLANDS: Unremarkable. KIDNEYS AND URETERS: Nonobstructing right renal calculus measuring up to 5 mm. No obstructing left re nal calculus measuring up to 3 mm. Left renal cortical simple appearing cyst. PELVIS BLADDER: Focus of gas in the nondependent portion the urinary bladder. REPRODUCTIVE: Unremarkable. ABDOMEN & PELVIS STOMACH AND BOWEL: Stomach and duodenum are unremarkable. No focal bowel wall thickening or surroundi ng inflammatory changes. The appendix is within normal limits. Enteric contrast is reaches the ileoce susana junction. No evidence of bowel obstruction. Large amount stool is throughout the sigmoid colon an d rectum. Scattered colonic diverticula. PERITONEUM: No evidence of pneumoperitoneum or free fluid. VASCULATURE: Mild atherosclerotic calcifications are present throughout the abdominal aorta and its b ranches. No abdominal aortic aneurysm. MUSCULOSKELETAL: No acute osseous abnormalities. No aggressive osseous lesion. Mild multilevel degene rative disc disease. Grade 1 anterolisthesis of L4 on L5 without pars defects. LYMPH NODES: No evidence for lymphadenopathy. Stable nonenlarged lymph nodes in the left pelvis measu ring 6 mm more anteriorly located on 05/08/2024 SOFT TISSUE/ABDOMINAL WALL: Unremarkable IMPRESSION: 1. Stable examination with no evidence for new lymphadenopathy or enlarging mass. 2. Focus of gas in the urinary bladder correlate with urinalysis for cystitis carotid arteries instr umentation. 3. Colonic diverticulosis. [facility], , 09/04/2024 7:03 PM
== END | disposition home or self-care (01) ==
LOC: RADCTMAIN 13:43
PROVIDERS: ATTEND Internal Medicine Hematology & Oncology
DX: C34.2 Malignant neoplasm of middle lobe, bronchus or lung (principal); K57.30 Diverticulosis of large intestine without perforation or abscess without bleeding
CPT/HCPCS: 82565; 84520; 71260; 74177; 36415; Q9967

== ENCOUNTER → 2025-01-22 | Outpatient (CLI) | payer MEDICARE ==
--- NOTE | 2025-01-22 13:51 | MM ---
Reason for Exam: Additional evaluation requested from prior study. Last screening mammogram was performed 12 month(s) ago. Patient History: Menarche at age 11. First Full-Term at age 18. Postmenopausal. Breast cancer, left, age 68. Previous chest radiation therapy at age 66. Previous chemotherapy at age 66. 02/14/2024, Lumpectomy on the Left side. 02/14/2024, Malignant MG pre op needle loc LT on the left side. 01/20/2024, Malignant MG stereo VAD BX LT on the left side. Tissue Density: There are scattered areas of fibroglandular density. Findings: Analyzed By CAD. Left breast surgical clips. No new suspicious masses, calcifications or distortions. Overall Assessment: Benign, BI-RAD 2 Management: Screening Mammogram of both breasts in 1 year. Results were given to the patient verbally at the time of exam. Patient should continue monthly self-breast exams. A clinical breast exam by your physician is recommended on an annual basis. This exam should not preclude additional follow-up of suspicious palpable abnormalities. Note on Carmina scores and lifetime risk: 1. A Carmina score greater than 3% is considered moderate risk. If this is the case, consider specialist referral to assess eligibility for a risk reducing agent. 2. If overall lifetime risk for the development of breast cancer is 20% or higher, the patient may qualify for future screening with alternating mammogram and breast MRI. [facility], , 01/22/2025 1:44 PM. Electronically signed and approved by: Everardo Luque DO
== END | disposition home or self-care (01) ==
LOC: RADMAMWWP 13:09
PROVIDERS: ATTEND Surgery
DX: R92.323 Mammographic fibroglandular density, bilateral breasts (principal); Z85.3 Personal history of malignant neoplasm of breast; Z78.0 Asymptomatic menopausal state
CPT/HCPCS: 77062; 77066